=== PATIENT | male | born 1955 | race Caucasian/White ===

== ENCOUNTER → 2018-03-24 11:59 | Outpatient (CLI) | payer BC, SELFPAY ==
--- NOTE | 2018-03-24 12:06 | XR_ITS ---
XR chest 2V HISTORY: ITS.REASON: PROSTATE CA ORDERING PHYSICIAN: Carlton Gallo MD PATIENT AGE: 62 years COMPARISON: None FINDINGS: The cardiomediastinal silhouette and pulmonary vascularity are within normal limits. The lungs are clear without infiltrates, suspicious nodules, or pleural effusions. Small linear areas of increased density noted in the right upper lobe and lingula consistent with areas of fibrosis. No lobar consolidation or collapse. Degenerative changes thoracic spine with endplate osteophytes and ankylosis. No lytic or blastic change apparent. IMPRESSION: 1. No acute finding. 2. Fibrotic or atelectatic change right upper lobe and lingula.
== END ==
PROVIDERS: PCP Family Medicine; Visit Provider Urology
DX: C61 Malignant neoplasm of prostate (principal)
CPT/HCPCS: 71046

== ENCOUNTER → 2018-05-19 14:47 | Outpatient (CLI) | payer BC, SELFPAY ==
--- NOTE | 2018-05-19 14:48 | FL_ITS ---
FL voiding cystourethrogram CLINICAL INDICATION: Recent prostate surgery with Gooden catheter present. 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 Approximately 150 cc of Cystografin was instilled into the urinary bladder via the indwelling Gooden catheter. Contrast was noted to extravasate posterior to the base of the urinary bladder. On the lateral exam and it appears that the contrast was imaged from the prostatic urethra. Injection was then discontinued. The bladder was not completely filled. Small diverticula noted along the superior posterior aspect of the urinary bladder IMPRESSION: Extravasation of contrast from the prostatic urethra posteriorly Significant findings called to Dr. Gallo on 05/19/2018 3;15 PM.
== END ==
PROVIDERS: PCP Family Medicine; Visit Provider Urology
DX: C61 Malignant neoplasm of prostate (principal)
CPT/HCPCS: 74455; Q9966

== ENCOUNTER → 2018-05-26 12:41 | Outpatient (CLI) | payer BC, SELFPAY ==
--- NOTE | 2018-05-26 12:43 | FL_ITS ---
FL voiding cystourethrogram CLINICAL INDICATION: Prostate cancer, status post surgery, follow-up extravasation ITS.REASON: prostate cancer ORDERING PHYSICIAN: Carlton Gallo MD PATIENT AGE: 62 years Comparison: 05/19/2018 FINDINGS: Approximate 120 mL's of Isovue 200 was instilled in through the indwelling Gooden catheter. There is persistent extravasation of contrast along the posterior aspect of the prostatic urethra with collection of contrast posteriorly. This is similar when compared to the previous exam and occurred earlier during the exam than when compared to the previous study. Urinary bladder has a trabecular pattern as before. IMPRESSION: Persistent extravasation of contrast from the prostatic urethra posteriorly
== END ==
PROVIDERS: Family Provider Family Medicine; PCP Family Medicine; Visit Provider Urology
DX: C61 Malignant neoplasm of prostate (principal)
CPT/HCPCS: 74455

== ENCOUNTER → 2018-06-05 11:15 | Outpatient (CLI) | payer BC, SELFPAY ==
[2018-06-05 15:28] LABS: Prostate Specific Ag, Diagnost 0.01 ng/mL (0.0-4.0)
== END ==
PROVIDERS: Visit Provider Urology
DX: C61 Malignant neoplasm of prostate (principal)
CPT/HCPCS: 36415; 84153

== ENCOUNTER → 2018-08-11 13:12 | Outpatient (CLI) | payer BC, SELFPAY ==
[2018-08-11 15:32] LABS: Prostate Specific Ag, Diagnost < 0.05 ng/mL (0.0-4.0)
== END ==
PROVIDERS: Visit Provider Urology
DX: C61 Malignant neoplasm of prostate (principal)
CPT/HCPCS: 36415; 84153

== ENCOUNTER → 2018-11-09 15:28 | Outpatient (CLI) | payer BC, SELFPAY ==
[2018-11-11 14:27] LABS: PSA, Free <0.01 ng/mL; Prostate Specific Ag <0.1 ng/mL (0.0-4.0)
== END ==
PROVIDERS: Visit Provider Urology
DX: C61 Malignant neoplasm of prostate (principal)
CPT/HCPCS: 36415; 84153; 84154

== ENCOUNTER → 2019-03-30 13:59 | Outpatient (CLI) | payer BC, SELFPAY ==
[2019-03-30 15:57] LABS: Prostate Specific Ag, Diagnost < 0.05 ng/mL (0.0-4.0)
== END ==
PROVIDERS: Visit Provider Urology
DX: C61 Malignant neoplasm of prostate (principal)
CPT/HCPCS: 36415; 84153

== ENCOUNTER → 2019-06-29 13:27 | Outpatient (CLI) | payer BC, SELFPAY ==
--- NOTE | 2019-06-29 | CA_ITS ---
APPROVED REPORT EXAM: Comprehensive 2D, Doppler, and color-flow Echocardiogram Spray Drier Operator Helper: Liliana Arana CRT Ht: 5 ft 4 in Wt: 192lbs BSA: 1.92 BP: 106/65 mmHg Indications: murmur 2D Dimensions LVOT 1.73 cm (M/F) 1.5-2.5 M-Mode Dimensions RVDd 2.81 cm (0.9-2.6) LVDd 5.73 cm (3.5-5.7) LVDs 4.15 cm (3.5-5.7) IVSd 1.64 cm (0.6-1.1) PWd 0.40 cm (0.6-1.1) EF (Teich) 52.80% FS 27.60% EDV (Teich) 162.00 mL ESV (Teich) 76.40 mL LV Diastology E/A Ratio 0.96 Mitral Valve MV A Velocity 54.00 (40-130 cm/s) Left Ventricle Left atrium is mildly enlarged, left ventricle is normal size, there is mild qualitative concentric left ventricular hypertrophy, visually estimated ejection fraction 55% with no regional wall motion abnormality, grade 1 diastolic dysfunction seen without tissue Doppler evidence of raise left atrial pressure. Right Ventricle Right atrium and right ventricular normal size and contractility. Aortic Valve Aortic valve is thickened and calcified leaflet chordae display good mobility, there is no aortic stenosis, there is mild aortic insufficiency. Mitral Valve Mitral valve is grossly normal, there is mild mitral regurgitation. Tricuspid Valve Tricuspid valve is grossly normal, there is mild tricuspid regurgitation. Tricuspid regurgitation jet velocity is inadequate for calculation of the right ventricular systolic pressure. Pulmonic Valve Pulmonic valve is poorly visualized. Great Vessels Aortic root is normal size. Pericardium No significant pericardial effusion noted. Conclusion 1. Mildly enlarged left atrium, normal left ventricular size, mild concentric left ventricular hypertrophy, visually estimated ejection fraction 55% with no regional wall motion abnormality, grade 1 diastolic dysfunction seen without tissue Doppler evidence of raise left atrial pressure. 2. Mild aortic, mild mitral and tricuspid regurgitation. 3. No significant pericardial effusion noted. Electronically signed by : Vivek Castillo, 06/29/2019 22:10:53
--- NOTE | 2019-06-29 | CA_ITS ---
APPROVED REPORT Target Trimmer: CT Laterality: Bilateral Indications: bruit Risk Factors Hypertension: Hyperlipidemia Diabetes Doppler Spectral Velocity Analysis ECA (R) 94.70/94.70 cm/s ECA (L) 75.30/11.80 cm/s dICA (R) 67.70/28.10 cm/s dICA (L) 50.40/15.40 cm/s Kiersten (R) 71.30/31.80 cm/s Kiersten (L) 54.60/22.50 cm/s pICA (R) 40.60/16.10 cm/s pICA (L) 36.00/14.10 cm/s dCCA (R) 89.90/17.30 cm/s dCCA (L) 69.80/17.60 cm/s pCCA (R) 108.00/26.60 cm/s pCCA (L) 90.50/20.40 cm/s Vert (R) 37.70/15.10 cm/s Vert (L) 38.00/38.00 cm/s Findings Duplex evaluation demonstrates stenosis of the right proximal internal carotid artery <20% with PSV <140 cm/sec, EDV <100 cm/sec, and IC/CC Ratio <4.0. Duplex evaluation demonstrates stenosis of the left proximal internal carotid artery <20% with PSV <140 cm/sec, EDV <100 cm/sec, and IC/CC Ratio <4.0. Duplex evaluation demonstrates antegrade flow of the bilateral Vertebral Arteries. Conclusion No increased velocities to suggest hemodynamically significant stenosis in either internal carotid artery. Electronically signed by : Zachery Rodriguez MD 06/30/2019 14:42:46
[2019-06-29 15:52] LABS: Prostate Specific Ag, Diagnost 0 ng/mL (0.0-4.0)
== END ==
PROVIDERS: Urology; PCP Family Medicine; Visit Provider Family Medicine
DX: R33.9 Retention of urine, unspecified (principal); R01.1 Cardiac murmur, unspecified; R42 Dizziness and giddiness; E78.00 Pure hypercholesterolemia, unspecified; E11.9 Type 2 diabetes mellitus without complications
CPT/HCPCS: 36415; 84153; 93306; 93880

== ENCOUNTER 2019-09-22 14:00 | Outpatient (RCR) | payer BC, SELFPAY ==
--- NOTE | 2019-06-30 10:09 | HMH.PTOPEV ---
PT Outpatient Evaluation Rehab PT Outpatient Evaluation Start: 06/30/19 09:26 Freq: Status: Active Protocol: Document 06/30/19 09:26 RAMSES (Rec: 06/30/19 10:09 RAMSES [id number]) Electronically Signed By Jersey Watkins, PT 06/30/19 09:26 Outpatient Therapy Subjective History Subjective History Pt reports h/o chronic R SH pain, R sided neck/UT mm area pain for ~3 months. Pt reports pain radiates from UT into Sh blade and SH area on R, bin. w/repeatitive work activities. Pt reports previous R SH RTC injury ~9 yrs ago. Chief Complaint Pain,Stiff Symptom Type Ache,Dull Symptoms Relieved By Rest/Positioning,Heat Symptoms Aggravated By Physical Activity,Lifting Prior Functional Limitations Reaching,Lifting,Housework Current Functional Limitations Reaching,Lifting,Housework Symptom Description Constant but Variable Level of pain today (0-10) 3 Pain scale - at its best (0-10) 2 Pain scale - at its worst (0-10) 4 Shoulder/Elbow Eval Shoulder Objective Measurements Palpation Tenderness tenderness shoulder exam standard right Shoulder Palpation Findings Tenderness Shoulder Palpation Overall Comment 2-3/4 UT MM Posture Shoulder Posture Sitting Position (L) Rounded,(R) Rounded Shoulder Posture Standing Position (L) Rounded,(R) Rounded Scapula Posture Sitting Position (L) Protracted,(R) Protracted Scapular Posture Standing Position (L) Protracted,(R) Protracted Flexibilty Deficits Pectoralis Minor Muscle Length (R) Severe Tightness,(L) Severe Tightness Pectoralis Major Muscle Length (R) Severe Tightness,(L) Severe Tightness Upper Trapezius Muscle Length (R) Moderate Tightness,(L) Moderate Tightness Shoulder ROM Right Shoulder Abduction Active Range of 0-130 Motion (degrees) Shoulder Flexion Active Range of Motion 0-140 (degrees) Query Text: Shoulder MMT Lower Trapezius Strength Grade 3+ Fair+ Middle Trapezius Strength Grade 4- Good- Rhomboids Strength Grade 4- Good- Shoulder Abduction Strength Grade 4 Good Shoulder Flexion Strength Grade 4 Good Shoulder External Rotation Strength 4 Good Grade Shoulder Internal Rotation Strength 5 Normal Grade Supraspinatus Strength Grade 4- Good- Shoulder Special Tests Shoulder Drop Arm Test Negative Right Shoulder Cross-Over Impingement Test Positive Right Shoulder Empty Can (Supraspinatus) Test Positive Right Shoulder Pisano-Marshall Impingement Positive
--- NOTE | 2019-08-06 15:41 | HMH.RHREAS ---
Rehab Reassessment Rehab OP Re-assessment Start: 08/06/19 15:17 Freq: Status: Active Protocol: Document 08/06/19 15:17 RAMSES (Rec: 08/06/19 15:41 RAMSES [id number]) Electronically Signed By Jersey Watkins, PT 08/06/19 15:17 Rehab Re-assessment Subjective Subjective PT REPORTS 0-2/10 R SH PAIN W/ ACTIVITY, AND FEELS 50-60% BETTER OVERALL SINCE I EVAL Objective Objective Notes AROM: R SH FLX AND ABD 0-150 MMT: R SH FLX 4/5 W/PAIN, ABD 4+/5, IR 5/5, ER 5/5, R BICEP 5/5, 6 TRICEP 5/5, MT/RHOMBOID 4/5 TTP: R UT 1/4, R DELTOID 1/4 Assessment Progress Assessment Progressing as Expected Assessment Notes PT W/IMPROVED TTP, STRENGTH, AND ROM Patient goals met STG'S 02/07 LTG'S 11/08 Goals Not Met LTG'S 10/08 Plan Plan PT TO CONT. W/SKILLED P.T. TO MAKE FURTHER IMPROVEMENTS W/ AROM, STRENGTH, AND TTP TO ALLOW FOR OPTIMAL FUNCTION Frequency of Therapy 1-2X/WK Duration of therapy 3-4 WKS Time and Billing Re-Eval Time 15 Re-Eval Billing Units 1 PHYSICIAN CERTIFICATION: I certify the specified therapy services for Humberto Johnson are required, authorized, and reviewed every 30 days.
== END 2019-09-22 14:05 | disposition home or self-care (01) ==
LOC: PT 14:00
PROVIDERS: PCP Family Medicine; Visit Provider Family Medicine
DX: M75.101 Unspecified rotator cuff tear or rupture of right shoulder, not specified as traumatic (principal)
CPT/HCPCS: 97010; 97014; 97035; 97110; 97140; 97163; 97164; G0283

== ENCOUNTER → 2019-12-31 10:57 | Outpatient (CLI) | payer BC, SELFPAY ==
--- NOTE | 2019-12-31 11:05 | XR_ITS ---
PROCEDURE: XR KUB CLINICAL INDICATION: RT FLANK PAIN COMPARISON: No exams were available for comparison FINDINGS: There is a moderate amount stool in the upper ascending colon and hepatic flexure and proximal transverse colon somewhat obscuring the mid and lower pole right kidney. No obvious calculi are seen in the right kidney or along the course of the right ureter. Left renal shadows partially obscured by overlying stool and bowel gas in the distal transverse colon but again no obvious calculi are seen. There is no significant small bowel gas. There are no abnormal soft tissue shadows. There are mild degenerate changes thoracolumbar junction. IMPRESSION: Moderate stool right colon no definite renal or ureteral calculi identified though portions of both kidneys are obscured. Dictated by: Dr. Dwain Paula MD 12/31/2019 11:[address] Dwain Paula MD in [place] 12/31/2019 11:38
== END ==
PROVIDERS: PCP Family Medicine; Visit Provider Nurse Practitioner Family
DX: R10.9 Unspecified abdominal pain (principal)
CPT/HCPCS: 74018

== ENCOUNTER → 2020-12-06 07:48 | Outpatient (CLI) | payer BC, SELFPAY ==
--- NOTE | 2020-12-06 | CA_ITS ---
APPROVED REPORT EXAM: Comprehensive 2D, Doppler, and color-flow Echocardiogram Simonizer: Hilda Gerardo RT(R) Ht: 5 ft 4 in Wt: 200lbs BSA: 1.96 BP: 136/77 mmHg Indications: Murmur, DM, SOB, hyperlipidemia 2D Dimensions LVOT 2.09 cm (M/F) 1.5-2.5 LA Volume 46.60 mL LA Volume Index 23.89 mL/m2 (M/F) 16-34 M-Mode Dimensions RVDd 2.81 cm (0.9-2.6) LA Diam 4.85 cm (1.9-4.0) LVDd 4.45 cm (3.5-5.7) Ao Diam 2.64 cm (2.0-3.7) LVDs 3.56 cm (3.5-5.7) IVSd 1.36 cm (0.6-1.1) PWd 1.08 cm (0.6-1.1) EF (Teich) 41.20% FS 20.00% EDV (Teich) 90.10 mL ESV (Teich) 53.00 mL LV Diastology E Decel Time 223.00 (160-240 msec) E/A Ratio 0.9 MED E' 13.70 (< 7 cm/sec) E'/MED E' Ratio 5.45 (>14) LAT E' 11.00 (<10 cm/sec) E/LAT E' Ratio 6.79 (>14) Aortic Valve LVOT Max 124.00 (70-110 cm/s) LVOT VTI 26.15 cm AoV Peak Heriberto. 315.00 (50-130 cm/s) AO Peak GR. 39.80 mmHg AO Mean GR. 19.50 (<5 mmHg) AO VTI 59.20 (18-25 cm) NILE (VTI) 1.52 (2.5-4.5 cm2) Mitral Valve MV E Max Heriberto. 75.00 (40-130 cm/s) MV A Velocity 83.00 (40-130 cm/s) E/A Ratio 0.90 MV Decel. Time 223.00 (160-240 ms) MV PHT 65.00 ms Left Ventricle Left atrium is mildly enlarged, left ventricle is normal size, left ventricle wall thickness is upper limit of the normal, there is preserved left ventricular systolic function, visually estimated ejection fraction 55% with no regional wall motion abnormality, diastolic parameters are within normal range. Right Ventricle Right atrium and right ventricle are normal size and contractility. Aortic Valve Aortic valve is thickened and calcified, mean gradient across valve is 42 mmHg valve area 1.5 cm, represents mild aortic stenosis, there is no significant aortic insufficiency. Mitral Valve Mitral valve is grossly normal, there is trace mitral regurgitation. Tricuspid Valve Tricuspid grossly normal, there is trace tricuspid regurgitation, tricuspid regurgitation jet velocity is inadequate for calculation of the right ventricular systolic pressure. Pulmonic Valve Pulmonic valve is poorly visualized. Great Vessels Aortic root is normal size. Pericardium No significant pericardial effusion noted. Conclusion 1. Mildly low left atrium, normal left ventricular size, visually estimated ejection fraction 55% with no regional wall motion abnormality, diastolic parameters are within normal range 2. Thickened and calcified aortic valve with mild aortic stenosis, the valve area is 1.5 cm???, there is no aortic insufficiency. 3. Trace mitral and tricuspid regurgitation. 4. No significant pericardial effusion noted. Electronically signed by : Vivek Castillo, 12/07/2020 15:53:25
== END ==
PROVIDERS: PCP Family Medicine; Visit Provider Family Medicine
DX: R06.02 Shortness of breath (principal); I34.0 Nonrheumatic mitral (valve) insufficiency; I35.1 Nonrheumatic aortic (valve) insufficiency; I36.1 Nonrheumatic tricuspid (valve) insufficiency; E66.9 Obesity, unspecified; Z68.30 Body mass index [BMI] 30.0-30.9, adult
CPT/HCPCS: 93306

== ENCOUNTER → 2021-07-17 13:23 | Outpatient (CLI) | payer BC, SELFPAY ==
--- NOTE | 2021-07-17 13:28 | XR_ITS ---
PROCEDURE: XR WRIST RT MIN 3V CLINICAL INDICATION: right wrist pain COMPARISON: No exams were available for comparison FINDINGS: No fracture or dislocation. No lytic or blastic change. There is normal mineralization. There are mild osteoarthritic changes at the scapho trapezium joint and 1st carpal metacarpal junction Other findings:None. IMPRESSION: Mild osteoarthritis Dictated by: Zachery Rodriguez MD 07/17/2021 15:46 Zachery Rodriguez MD in [place] 07/17/2021 15:46
== END ==
PROVIDERS: PCP Family Medicine; Visit Provider Orthopaedic Surgery
DX: M25.531 Pain in right wrist (principal)
CPT/HCPCS: 73110

== ENCOUNTER 2021-08-10 11:43 | Inpatient (IN) | payer BC, SELFPAY ==
[2021-08-10] VITALS (17 sets, daily range): BP systolic 130–175; BP diastolic 69–103; PULSE 89–105; RESP 20–22; TEMP 36.6–36.7; O2SAT 68–98; BMI 34.4; BMI 32.9
--- NOTE | 2021-08-10 11:52 | HMH.EDGENADL ---
ED Disposition Clinical Impression: Pulmonary emboli Qualifiers: Pulmonary embolism type: unspecified Chronicity: acute Acute cor pulmonale presence: with acute cor pulmonale Qualified Code(s): I26.09 - Other pulmonary embolism with acute cor pulmonale Respiratory failure with hypoxia Qualifiers: Chronicity: acute Qualified Code(s): J96.01 - Acute respiratory failure with hypoxia Disposition: Admitted As Inpatient Condition on Discharge: Serious Referrals: Yefri Bennett MD [Primary Care Provider] - - Critical Care Critical Care Time: Yes Attestation: On 08/10/21, the high probability of a clinically significant, sudden or life threatening deterioration of the following system(s) required my full and direct attention, intervention and personal management. The time I documented below is in addition to time spent performing reported procedures but includes the following listed in this critical care notation. Total Critical Care Time: 30 Vital system(s) involved:: Respiratory Failure My critical care processes included: Assessment & monitoring of V/S, Initial and Re-exams, Data Review/Interpretation, Coordinating Care, Medication Orders and management, Documentation Medical Decision Making - Hernandez Inquiry Pt receiving controlled substance: No Vital Signs: 08/10/21 11:44 08/10/21 12:00 08/10/21 12:03 Temperature 98.0 F Temperature Source Oral Pulse Rate 105 H Pulse Rate [Right Radial] 105 H Respiratory Rate 22 Blood Pressure 159/86 H Blood Pressure [Right Arm] 149/87 H Blood Pressure Mean [Right Arm] 107 Blood Pressure Source [Right Arm] Automatic Cuff Blood Pressure Position [Right Arm] Sitting 02 Sat by Pulse Oximetry 68 L 95 93 L Oxygen Delivery Method Room Air Non-Rebreather Non-Rebreather Oxygen Flow Rate (LPM) 15 15 08/10/21 12:30 08/10/21 13:01 08/10/21 13:15 Temperature Temperature Source Pulse Rate 98 H 99 H 98 H Pulse Rate [Right Radial] Respiratory Rate Blood Pressure 175/103 H 150/85 H 135/69 Blood Pressure [Right Arm] Blood Pressure Mean [Right Arm] Blood Pressure Source [Right Arm] Blood Pressure Position [Right Arm] 02 Sat by Pulse Oximetry 96 95 98 Oxygen Delivery Method Non-Rebreather Non-Rebreather Oxygen Flow Rate (LPM) 08/10/21 14:00 Temperature Temperature Source Pulse Rate 98 H Pulse Rate [Right Radial] Respiratory Rate Blood Pressure 130/74 Blood Pressure [Right Arm] Blood Pressure Mean [Right Arm] Blood Pressure Source [Right Arm] Blood Pressure Position [Right Arm] 02 Sat by Pulse Oximetry 94 L Oxygen Delivery Method Non-Rebreather Oxygen Flow Rate (LPM) - Lab Data Lab Results 08/10/21 11:55: WBC 13.3 H, RBC 4.33 L, Hgb 14.0 L, Hct 43.5, MCV 100.4 H, MCH 32.4 H, MCHC 32.2, RDW 13.3, Plt Count 321, MPV 8.6, Neut % (Auto) 78.9, Lymph % (Auto) 11.6, [place] % (Auto) 7.5, Eos % (Auto) 0.2, Baso % (Auto) 1.8, Neut # (Auto) 10.4 H, Lymph # (Auto) 1.5, [place] # (Auto) 1.0, Eos # (Auto) 0.0, Baso # (Auto) 0.2 08/10/21 11:55: Sodium 132 L, Potassium 4.0, Chloride 96 L, Carbon Dioxide 23, Anion Gap 17.0 H, BUN 22 H, Creatinine 1.00, Estimated Creat Clear 95, Estimated GFR 75, Est GFR ( Amer) 91, Glucose 381 H, Calcium 9.7, Total Bilirubin 0.7, AST 31, ALT 27, Alkaline Phosphatase 85, Troponin I 0.28 H, Total Protein 7.7, Albumin 4.3, Globulin 3.4 H, Albumin/Globulin Ratio 1.3 08/10/21 11:55: SARS-CoV-2 (PCR) Not detected, Influenza A Untype (PCR) Not detected, Influenza Type B (PCR) Not detected Result diagrams: 08/10/21 11:55 08/10/21 11:55 Orders (Tests/Meds): ED MEDICATIONS Generic Name Dose Route Start Last Admin Trade Name Freq PRN Reason Stop Dose Admin Heparin Sodium/Dextrose 500 mls @ 24 mls/hr 08/10/21 15:15 08/10/21 15:13 Heparin 25,000 Units In D5w 500ml Premix IV 09/09/21 15:14 24 mls/hr .[id number] HAMLET Administration 1,200 UNITS/HR Discontinued Medications Generic Name Dose
--- NOTE | 2021-08-10 12:00 | XR_ITS ---
FINAL REPORT CLINICAL HISTORY: low SaO2, STRONG FINDINGS: A portable view of the chest was obtained. The heart is mildly enlarged. The mediastinum is within normal limits. There is linear opacity in right upper lobe favoring atelectasis. The lungs are otherwise clear. There is no pleural effusion or pneumothorax. IMPRESSION: Linear opacity in right upper lobe favoring atelectasis. Reviewed, Interpreted and Dictated by Polina Lilly MD Transcribed by Erika David Authenticated by Polina Lilly MD on 08/10/2021 01:40:55 PM [facility]
--- NOTE | 2021-08-10 12:00 | CT_ITS ---
FINAL REPORT TECHNIQUE: Axial imaging of the chest is obtained after the administration of contrast. 3-D MIP reformatted images were also obtained and reviewed per PE protocol. CLINICAL HISTORY: r/o PE, low SaO2 FINDINGS: There are multiple bilateral pulmonary emboli. There is embolus in the right main pulmonary artery. There is no saddle embolus. There is no aortic dissection. The right ventricle to left ventricle ratio is slightly greater than 1 suggesting right heart strain. There is no mediastinal, hilar, or axillary lymphadenopathy. Linear opacities in the right upper lobe favor atelectasis. The lungs are otherwise clear. There is no pleural or pericardial effusion. Soft tissues are within normal limits. Limited evaluation of the upper abdomen is without acute abnormality. There is no acute osseous abnormality. IMPRESSION: Extensive bilateral pulmonary emboli with right heart strain. Reviewed, Interpreted and Dictated by Polina Lilly MD Transcribed by Handy Silva Authenticated by Polina Lilly MD on 08/10/2021 01:41:10 PM [facility]
--- NOTE | 2021-08-10 12:02 | PC.NURSE ---
notified rad of orders on pt
--- NOTE | 2021-08-10 12:03 | PC.NURSE ---
initial room air SaO2 upon pt arrival was 68%, pt placed pt on 100% NRB, pt steadily improved pt is now 93% on NRB ER MD is aware will continue to monitor
[2021-08-10 12:13] LABS: Basophils # 0.2 K/mm3 (0-0.2); Basophils % 1.8 % (0.1-2.0); Eosinophils % 0.2 % (0.1-12.0); Hematocrit 43.5 % (42.0-52.0); Lymphocytes # 1.5 K/mm3 (0.7-4.5); Lymphocytes % 11.6 % (10-50); Mean Corpuscular HGB Conc 32.2 g/dL (31.8-35.4); Mean Corpuscular Hemoglobin 32.4 pg (27.0-31.2); Mean Corpuscular Volume 100.4 fl (80-94); Mean Platelet Volume 8.6 fl (7.4-10.4); Monocytes % 7.5 % (1.7-9.3); Neutrophils # 10.4 K/mm3 (1.8-7.8); Neutrophils % 78.9 % (37.0-80.0); Platelet Count 321 K/mm3 (142-424); Red Blood Count 4.33 M/mm3 (4.60-6.20); Red Cell Distribution Width 13.3 % (11.5-17.5); White Blood Count 13.3 K/mm3 (4.8-10.8)
[2021-08-10 12:18] LABS: Chloride 96 mmol/L (98-107); Sodium 132 mmol/L (136-145)
[2021-08-10 12:21] LABS: Alanine Aminotransferase 27 U/L (12-78); Albumin Level 4.3 g/dl (3.5-5.0); Albumin/Globulin Ratio 1.3 (1.1-1.8); Alkaline Phosphatase 85 U/L (38-126); Aspartate Amino Transferase 31 U/L (17-59); Bilirubin,Total 0.7 mg/dl (0.2-1.3); Blood Urea Nitrogen 22 mg/dl (9-20); Carbon Dioxide 23 mmol/L (22.0-30.0); Creatinine Clearance Estimated 95 mL/min (50-200); Estimated Glomerular Filt Rate 75 ml/min (>60); GFR (African American) 91 ML/MIN (>60); Globulin 3.4 g/dL (1.3-3.2); Total Protein,Serum 7.7 g/dl (6.3-8.2)
[2021-08-10 12:22] LABS: Calcium 9.7 mg/dl (8.4-10.2); Glucose 381 mg/dl (74-100)
--- NOTE | 2021-08-10 12:24 | ECG_ITS ---
APPROVED REPORT Exam: Resting ECG HR:100 bpm ECG Measurements Heart Rate 100 AXES [place] 190 P 40 QRSd 94 QRS 41 QT 402 T 7 QTc 518 Conclusion Normal sinus rhythm Nonspecific ST abnormality Prolonged QT Abnormal ECG Electronically signed by : Yefir Mchugh MD 08/11/2021 09:25:08
[2021-08-10 12:45] LABS: Coronavirus 19, PCR Not Detected (NotDetected); Influenza A, PCR Not Detected (NotDetected); Influenza B, PCR Not Detected (NotDetected); Troponin I 0.28 ng/ml (0.00-0.034)
--- NOTE | 2021-08-10 13:52 | PC.NURSE ---
NICK RAINEY speaking Dr. Velasquez.
--- NOTE | 2021-08-10 14:05 | PC.NURSE ---
calling dr gordillo per dr mills request.
--- NOTE | 2021-08-10 14:12 | PC.NURSE ---
Dr Grady speaking with Dr Bennett
--- NOTE | 2021-08-10 14:50 | PC.NURSE ---
cardiology at bedside
--- NOTE | 2021-08-10 14:57 | HMH.CNCARD ---
History of Present Illness Consult date: 08/10/21 Requesting physician: Brandon Grady Consult reason: shortness of breath Chief complaint: PE History of present illness: 66-year-old male presented to the emergency room with worsening shortness of breath. Patient states on 07/24/2027 he did undergo urology surgery in which he had prostatectomy performed. Patient does have a Gooden catheter intact. Draining clear yellow urine. Patient states for the past few days his shortness of breath has become worse to where he is unable to do his daily activities. Complains of increased fatigued and generalized weakness. States he did have an episode of midsternal chest pain that accompanied with the shortness of breath. Patient denies chest pain at this time. Patient states fevers for the past 2 to 3 days. Patient denies any history of cardiac disease. Patient does have a aortic murmur noted. Patient did have an echo in December 2020 which revealed mild aortic stenosis and trace of MR and TR noted. EF was within normal. Patient is on a nonrebreather at this time. Pulse ox is 93 to 94%. Blood pressure is stable. Denies dizziness or palpitations. Chest CTA was performed which revealed pulmonary embolus with right heart strain. WBCs are noted as elevated. Patient does have history of diabetes. Patient does have history of HIV and is currently on medications. History of hypertension and hyperlipidemia. Patient is a non-smoker. Patient has no history of COPD. EKG reveals sinus rhythm with nonspecific or evidence of acute ischemic injury. Troponin x1 is noted as elevated at 0.28. Patient is currently on a heparin drip. Patient will need to remain on a heparin drip as per pharmacy protocol. Pharmacy will manage heparin. Chest CTA:FINDINGS: There are multiple bilateral pulmonary emboli. There is embolus in the right main pulmonary artery. There is no saddle embolus. There is no aortic dissection. The right ventricle to left ventricle ratio is slightly greater than 1 suggesting right heart strain. There is no mediastinal, hilar, or axillary lymphadenopathy. Linear opacities in the right upper lobe favor atelectasis. The lungs are otherwise clear. There is no pleural or pericardial effusion. Soft tissues are within normal limits. Limited evaluation of the upper abdomen is without acute abnormality. There is no acute osseous abnormality. IMPRESSION: Extensive bilateral pulmonary emboli with right heart strain. [facility] History I have reviewed the patient's past medical history: Yes Medical History: Reports:: Diabetes Mellitus Type 2, Hyperlipidemia Denies:: Diabetes Mellitus Type 1, Internal Pacemaker, Lung Disease, Seizures *Have you ever received a pneumonia vaccine?: No *Have you received a flu vaccine this season?: Yes Other Medical History: Denies: Blood Transfusion Reaction Other Surgeries: Yes: Colonoscopy, Hernia Repair, Other. No: Pacemaker Amputation: No Fractures: No - *Social History Smoking Status: Former smoker Tobacco Type: cigarettes Alcohol Intake: current Alcohol Intake Frequency:: holidays/special occasions only Substance Use Type: denies use *Occupational Status:: employed *Travel in the last 8 weeks: Inside the [facility] Family Hx:: Unable to obtain Meds Home Medications Medication Instructions Recorded Confirmed Type Atorvastatin Calcium [Atorvastatin 10 mg PO DAILY 01/27/18 07/17/21 History 10mg Tab] Calcium Carbonate [Calcium] 1,200 mg PO DAILY 01/27/18 07/17/21 History Elviteg/Flora/Emtric/Tenofo Ala 1 each PO DAILY 01/27/18 07/17/21 History [Genvoya Tablet] Fenofibrate [Fenoglide] 145 mg PO DAILY 01/27/18 07/17/21 History [place]-3 Fatty Acids [Fish Oil] 300 mg PO DAILY 01/27/18 07/17/21 History Sitagliptin Phosphate [Januvia 50 mg PO DAILY 01/27/18 07/17/21 History 50mg Tablet] Allergies Allergy/AdvReac Type Severity Reaction Status Date / Time No Known Allergie
--- NOTE | 2021-08-10 14:58 | CA_ITS ---
APPROVED REPORT EXAM: Comprehensive 2D, Doppler, and color-flow Echocardiogram Negative Turner Apprentice: Pinky Finn RVT Ht: 5 ft 4 in Wt: 201lbs BSA: 1.96 BP: 175/103 mmHg Indications: PE,MILD ,SOA,SMOKER,HIV TDS-PT UPRIGHT ON BACK ON NON-REBREATHER 2D Dimensions LVOT 2.58 cm (M/F) 1.5-2.5 LA Volume 37.50 mL LA Volume Index 19.13 mL/m2 (M/F) 16-34 M-Mode Dimensions RVDd 3.26 cm (0.9-2.6) LA Diam 4.23 cm (1.9-4.0) LVDd 5.32 cm (3.5-5.7) Ao Diam 3.21 cm (2.0-3.7) LVDs 3.62 cm (3.5-5.7) IVSd 1.21 cm (0.6-1.1) PWd 1.07 cm (0.6-1.1) EF (Teich) 59.60% FS 32.00% EDV (Teich) 136.50 mL TAPSE 2.22 (<1.7) ESV (Teich) 55.20 mL LV Diastology E Decel Time 160.00 (160-240 msec) E/A Ratio 0.8 MED E' 6.20 (< 7 cm/sec) E'/MED E' Ratio 8.00 (>14) LAT E' 5.70 (<10 cm/sec) E/LAT E' Ratio 8.70 (>14) Aortic Valve LVOT Max 63.00 (70-110 cm/s) LVOT VTI 11.14 cm AoV Peak Heriberto. 216.00 (50-130 cm/s) AO Peak GR. 18.70 mmHg AO Mean GR. 10.10 (<5 mmHg) AO VTI 39.54 (18-25 cm) NILE (VTI) 1.47 (2.5-4.5 cm2) Mitral Valve MV E Max Heriberto. 50.00 (40-130 cm/s) MV A Velocity 66.00 (40-130 cm/s) E/A Ratio 0.75 MV Decel. Time 160.00 (160-240 ms) MV PHT 47.00 ms Pulmonary Valve PV Peak Velocity 71.00 (50-150 cm/s) Tricuspid Valve TR P. Velocity 303.00 cm/s RAP Estimate 10.00 mmHg RVSP 46.70 mmHg Left Ventricle Left atrium is mildly enlarged, the ventricle is normal size, mild concentric left ventricular hypertrophy, visually estimated ejection fraction 50% with no obvious regional wall motion abnormality, there is abnormal septal motion. Grade 1 diastolic dysfunction seen without tissue Doppler evidence of rate left atrial pressure. Right Ventricle Right atrium and right ventricle moderately enlarged, contractility of the right ventricle is moderately reduced. Aortic Valve Aortic valve is thickened and calcified, mean gradient across valve is 10 mmHg, valve area is 1.5 cm??? represents mild aortic stenosis, there is no significant aortic insufficiency. Mitral Valve Otherwise grossly normal, there is mild mitral regurgitation. Tricuspid Valve Tricuspid valve grossly normal, there is mild tricuspid regurgitation, tricuspid rotation jet versus inadequate for calculation of the right ventricular systolic pressure. Pulmonic Valve Pulmonic valve is poorly visualized. Great Vessels Aortic root is normal size. Inferior vena cava is mildly dilated without significant inspiratory collapse. Pericardium No significant pericardial effusion noted. Conclusion 1. Biatrial enlargement, normal left ventricular size, mild concentric left ventricular hypertrophy, visually estimated ejection fraction 50%, there is abnormal septal motion, grade 1 diastolic dysfunction seen without tissue Doppler evidence of raised left atrial pressure. 2. Moderately enlarged right ventricle with moderate reduction in left ventricular contractility. 3. Mild mitral and tricuspid regurgitation, tricuspid regurgitation jet versus inadequate for calculation of the right ventricular systolic pressure. 4. Thickened and calcified aortic valve with mild aortic stenosis, there is no significant aortic insufficiency. 5. No significant pericardial effusion noted. 6. Inferior vena cava is mildly dilated without significant inspiratory collapse. Electronically signed by : Vivek Castillo MD 08/13/2021 13:00:16
--- NOTE | 2021-08-10 15:05 | PC.NURSE ---
Dr Velasquez is in dept.
--- NOTE | 2021-08-10 15:07 | PC.NURSE ---
DR. Velasquez at
--- NOTE | 2021-08-10 15:09 | PC.NURSE ---
notified pharmacy that Dr Velasquez had given verbal order for Heparin drip at 1200 units per house repeated verbal order back to Dr. Velasquez at time of receiving it.
--- NOTE | 2021-08-10 15:12 | PC.NURSE ---
Dr Velasquez speaking with Dr. Bennett on the phone at this time
--- NOTE | 2021-08-10 15:16 | PC.NURSE ---
CV lab staff at
--- NOTE | 2021-08-10 15:24 | PC.NURSE ---
notified lab of add on PTT
[2021-08-10 15:37] LABS: PTT Heparin (inpatient only) 22.1 Seconds (23.6-34.0)
[2021-08-10 15:39] LABS: POC Glucose,Bedside 207 (70-110)
--- NOTE | 2021-08-10 15:58 | HMH.PHAHEP ---
[facility] Pharmacy Heparin Dosing - Demographic Data Admission date:: 08/10/21 Date: 08/10/21 Time: 15:59 Allergies/Adverse Reactions: Allergies Allergy/AdvReac Type Severity Reaction Status Date / Time No Known Allergies Allergy Verified 07/17/21 14:34 Height: 1.62 m Weight: 91 kg - Indication Medication therapy:: Heparin Patient Problems: Current Active Problems S/P prostatectomy (Acute) Pulmonary emboli (Acute) Respiratory failure with hypoxia (Acute) HTN (hypertension) (Acute) HLD (hyperlipidemia) (Acute) HIV (human immunodeficiency virus infection) (Acute) Diabetes (Acute) Esophagitis (Acute) CVA?: No Bleeding problem?: No Kidney disease?: No ND?: No Desired PTT range:: Other Comments:: 50-75 - Labs Anticoagulation Lab Results:: 08/10/21 11:55 Hgb 14.0 L Hct 43.5 Plt Count 321 - Monitoring Dose Monitor 1 Date: 08/10/21 Time: 15:59 PTT Result:: 22.1 Infusion Rate:: DR. HAMMER STARTING HEPARIN AT 1200 UNITS/HR AND 9100 UNIT BOLUS IN ER. Dose Monitor 2 Date: 08/10/21 Time: 19:00 PTT Result:: 36.3 Infusion Rate:: HEPARIN DRIP AT 1550 UNITS/HR (31 ML/HR) AND REBOLUS AT HEPARIN 4000 UNITS SQ. Dose Monitor 3 Date: 08/10/21 Time: 23:30 PTT Result:: 48.0 Infusion Rate:: INCREASE RATE TO HEPARIN 1750 UNITS/HR (35 ML/HR) Dose Monitor 4 Date: 08/11/21 Time: 07:40 PTT Result:: 29.6 Infusion Rate:: INCREASED RATE TO 2100 UNITS/HR (42 ML/HR) AND MD STARTED XARELTO 15 MG BID. Dose Monitor 5 Date: 08/11/21 Time: 12:30 PTT Result:: 72.0 Infusion Rate:: CONTINUE WITH HEPARIN 2100 UNITS/HR (42 ML/HR) Dose Monitor 6 Date: 08/11/21 Time: 16:30 Infusion Rate:: MD STOPPING HEPARIN DRIP 30 MIN AFTER PM DOSE OF XARELTO PER DR. HAMMER. - Core Measures Is INR > or = 2 at discharge?: No Most Recent Labs:: Laboratory Results - last 24 hr 08/10/21 11:55: WBC 13.3 H, RBC 4.33 L, Hgb 14.0 L, Hct 43.5, MCV 100.4 H, MCH 32.4 H, MCHC 32.2, RDW 13.3, Plt Count 321, MPV 8.6, Neut % (Auto) 78.9, Lymph % (Auto) 11.6, [place] % (Auto) 7.5, Eos % (Auto) 0.2, Baso % (Auto) 1.8, Neut # (Auto) 10.4 H, Lymph # (Auto) 1.5, [place] # (Auto) 1.0, Eos # (Auto) 0.0, Baso # (Auto) 0.2 08/10/21 11:55: Sodium 132 L, Potassium 4.0, Chloride 96 L, Carbon Dioxide 23, Anion Gap 17.0 H, BUN 22 H, Creatinine 1.00, Estimated Creat Clear 95, Estimated GFR 75, Est GFR ( Amer) 91, Glucose 381 H, Calcium 9.7, Total Bilirubin 0.7, AST 31, ALT 27, Alkaline Phosphatase 85, Troponin I 0.28 H, Total Protein 7.7, Albumin 4.3, Globulin 3.4 H, Albumin/Globulin Ratio 1.3 08/10/21 11:55: SARS-CoV-2 (PCR) Not detected, Influenza A Untype (PCR) Not detected, Influenza Type B (PCR) Not detected 08/10/21 11:55: APTT 22.1 L 08/10/21 15:31: POC Glucose 207 H If INR was < than 2.0 why was therapy stopped?: XARELTO STARTED Were Heparin and Warfarin started on the same day?: No If not, why?: XARELTO STARTED
--- NOTE | 2021-08-10 16:00 | PC.NURSE ---
confirmed with Dr Dennis baugh to be admitted to med-surg floor on telemetry
--- NOTE | 2021-08-10 16:03 | PC.NURSE ---
warehouse team leader notified of admission
--- NOTE | 2021-08-10 16:35 | PC.NURSE ---
Pt is vomiting at this time.
--- NOTE | 2021-08-10 16:38 | HMH.HP ---
*Admission Date: 08/10/21 *Chief complaint: shortness of breath *History of present illness: 66 year old male with recent surgery for artificial urinary sphincter implantation on 07/30/21 presnted to the office with complaint of cough, chest congestion, and shortness of breath for 3 days. Cough was minimally productive. Dyspnea had worsened each day and had associated chest tightness. Patient denied hemoptysis, radiation of chest tightness. Patient claimed fever to 101 at home. IN office patient was in respiratory distress with sats of 80% and tachycardia. Covid test was negative. Due to his respiratory distress patient was sent to ER for emergent workup due to concern of PE vs. [place]. In ER patient found to have multiple PEs and evidence of right heart strain. Hypoxia and tachycardia correted with nonrebreather. Cardiology was consulted and recommended Heparin Drip. [facility] History I have reviewed the patient's past medical history: Yes Medical History: Reports:: Cancer (prostate), Diabetes Mellitus Type 2, Hyperlipidemia Denies:: Diabetes Mellitus Type 1, Internal Pacemaker, Lung Disease, Seizures *Have you ever received a pneumonia vaccine?: No *Have you received a flu vaccine this season?: Yes Other Medical History: Reports: HIV. Denies: Blood Transfusion Reaction Other Surgeries: Yes: Colonoscopy, Hernia Repair, Other (Prostatectomy). No: Pacemaker Amputation: No Fractures: No - *Social History Last grade of school completed: High school graduate Smoking Status: Former smoker Tobacco Type: cigarettes Alcohol Intake: current Alcohol Intake Frequency:: holidays/special occasions only Substance Use Type: denies use *Occupational Status:: employed *Travel in the last 8 weeks: Inside the [facility] Family Hx:: Unable to obtain, Non-contributory Review of Systems - Review of Systems Review of systems:: pertinent systems reviewed and negative unless documented below - *Neurologic Reports weakness Meds Home Medications Medication Instructions Recorded Confirmed Type Atorvastatin Calcium [Atorvastatin 10 mg PO DAILY 01/27/18 08/10/21 History 10mg Tab] Elviteg/Flora/Emtric/Tenofo Ala 1 each PO DAILY 01/27/18 08/10/21 History [Genvoya Tablet] Fenofibrate [Fenoglide] 145 mg PO DAILY 01/27/18 08/10/21 History Sitagliptin Phosphate [Januvia 50 mg PO DAILY 01/27/18 07/17/21 History 50mg Tablet] Liraglutide [Victoza 3-Rogelio] 1.2 mg SQ DAILY 08/10/21 08/10/21 History cefUROXime axetiL [Ceftin 500mg 500 mg PO BID 08/10/21 08/10/21 History Tab (GEQ)] glipiZIDE [Glipizide] 10 mg PO DAILY 08/10/21 08/10/21 History Allergies Allergy/AdvReac Type Severity Reaction Status Date / Time No Known Allergies Allergy Verified 07/17/21 14:34 Exam Vital signs and Labs for Last 24 Hours: Temp Pulse Resp BP Pulse Ox 98.0 F 94 H 22 147/85 H 95 08/10/21 11:44 08/10/21 15:45 08/10/21 11:44 08/10/21 15:45 08/10/21 15:45 Laboratory Results - last 24 hr 08/10/21 11:55: WBC 13.3 H, RBC 4.33 L, Hgb 14.0 L, Hct 43.5, MCV 100.4 H, MCH 32.4 H, MCHC 32.2, RDW 13.3, Plt Count 321, MPV 8.6, Neut % (Auto) 78.9, Lymph % (Auto) 11.6, [place] % (Auto) 7.5, Eos % (Auto) 0.2, Baso % (Auto) 1.8, Neut # (Auto) 10.4 H, Lymph # (Auto) 1.5, [place] # (Auto) 1.0, Eos # (Auto) 0.0, Baso # (Auto) 0.2 08/10/21 11:55: Sodium 132 L, Potassium 4.0, Chloride 96 L, Carbon Dioxide 23, Anion Gap 17.0 H, BUN 22 H, Creatinine 1.00, Estimated Creat Clear 95, Estimated GFR 75, Est GFR ( Amer) 91, Glucose 381 H, Calcium 9.7, Total Bilirubin 0.7, AST 31, ALT 27, Alkaline Phosphatase 85, Troponin I 0.28 H, Total Protein 7.7, Albumin 4.3, Globulin 3.4 H, Albumin/Globulin Ratio 1.3 08/10/21 11:55: SARS-CoV-2 (PCR) Not detected, Influenza A Untype (PCR) Not detected, Influenza Type B (PCR) Not detected 08/10/21 11:55: APTT 22.1 L 08/10/21 15:31: POC Glucose 207 H I & O for Last 24 hours: Intake & Output 08/08/21 08/09/21 08/10/21 08/11/21 11:59 11:
--- NOTE | 2021-08-10 16:57 | PC.NURSE ---
report called to isaura lemus on second floor at this time
--- NOTE | 2021-08-10 16:57 | PC.NURSE ---
pt on 8L NC at this time while trying to eat a crackers and peanut butter, pt requested a snack, ER okayed pt eating. pt on continuous monitoring while eating
--- NOTE | 2021-08-10 17:08 | PC.NURSE ---
placed pt back on 100% NRB at this time, pt ate a few crackers, tolerated well.
--- NOTE | 2021-08-10 17:33 | PC.NURSE ---
Pt arrived to the floor at this time
[2021-08-10 20:30] LABS: PTT Heparin (inpatient only) 36.3 Seconds (23.6-34.0)
[2021-08-10 20:40] LABS: POC Glucose,Bedside 185 (70-110)
--- NOTE | 2021-08-10 20:53 | PC.NURSE ---
[facility] contacted with PTT results, said to increase 1550 units/hr, and 4000 unit bolus, pharmacy will schedule next PTT
[2021-08-11] VITALS: BP 160/78; PULSE 78; PULSE 95; RESP 20; TEMP 37.3; O2SAT 95
--- NOTE | 2021-08-11 01:26 | PC.NURSE ---
[facility] pharmacy contacted at this time with PTT result, gave order to increase to 1750 units/hr
[2021-08-11 04:00] VITALS: BP 149/86; PULSE 94; RESP 18; TEMP 37; O2SAT 96
--- NOTE | 2021-08-11 04:12 | PC.NURSE ---
at beginning of shift, pt complaining of heartburn and nausea, PRN medication given with no improvement in symptoms, pony trimmer notified and order for promethazine received and carried out with relief in symptoms, has rested well the rest of shift, urine draining to bag at bedside, orangish in color, 500 mL out so far this shift, nonrebreather remains in place with O2 sats 95-97%, no complaints of SOA this shift or pain
[2021-08-11 05:05] VITALS: BMI 32.2
[2021-08-11 06:14] LABS: POC Glucose,Bedside 210 (70-110)
[2021-08-11 08:00] VITALS: BP 133/75; PULSE 82; PULSE 87; RESP 20; TEMP 36.3; O2SAT 89; O2SAT 99
--- NOTE | 2021-08-11 08:05 | HMH.ACPN2 ---
Internal Medicine - PN: Subj *Date: 08/11/21 *Time: 08:05 Interval history: Patient has been stable overnight. He denies chest pain and reports feeling better. Oxygen saturations have been in the mid to high 90s. Pulse rate has remained in the 90s. Exam Vital signs and Labs for Last 24 Hours: Temp Pulse Resp BP Pulse Ox 98.6 F 94 H 18 149/86 H 96 08/11/21 04:00 08/11/21 04:00 08/11/21 04:00 08/11/21 04:00 08/11/21 04:00 Laboratory Results - last 24 hr 08/10/21 11:55: WBC 13.3 H, RBC 4.33 L, Hgb 14.0 L, Hct 43.5, MCV 100.4 H, MCH 32.4 H, MCHC 32.2, RDW 13.3, Plt Count 321, MPV 8.6, Neut % (Auto) 78.9, Lymph % (Auto) 11.6, [place] % (Auto) 7.5, Eos % (Auto) 0.2, Baso % (Auto) 1.8, Neut # (Auto) 10.4 H, Lymph # (Auto) 1.5, [place] # (Auto) 1.0, Eos # (Auto) 0.0, Baso # (Auto) 0.2 08/10/21 11:55: Sodium 132 L, Potassium 4.0, Chloride 96 L, Carbon Dioxide 23, Anion Gap 17.0 H, BUN 22 H, Creatinine 1.00, Estimated Creat Clear 95, Estimated GFR 75, Est GFR ( Amer) 91, Glucose 381 H, Calcium 9.7, Total Bilirubin 0.7, AST 31, ALT 27, Alkaline Phosphatase 85, Troponin I 0.28 H, Total Protein 7.7, Albumin 4.3, Globulin 3.4 H, Albumin/Globulin Ratio 1.3 08/10/21 11:55: SARS-CoV-2 (PCR) Not detected, Influenza A Untype (PCR) Not detected, Influenza Type B (PCR) Not detected 08/10/21 11:55: APTT 22.1 L 08/10/21 15:31: POC Glucose 207 H 08/10/21 19:05: APTT 36.3 H 08/10/21 20:19: POC Glucose 185 H 08/11/21 00:55: APTT 48.0 H 08/11/21 06:02: POC Glucose 210 H I & O for Last 24 hours: Intake & Output 08/08/21 08/09/21 08/10/21 08/11/21 11:59 11:59 11:59 11:59 Intake Total 1126 / 1126 Output Total 500 / 500 Balance 626 / 626 Weight 201 lb 200 lb 11.2 oz Narrative: Patient has mild tachypnea and conversational dyspnea. Nonrebreather is in place. Lungs remain clear. Heart has a regular rate and rhythm. Abdomen is soft. Extremities are without edema and there is no calf tenderness. Gooden catheter is anchored Assessment and Plan (1) Pulmonary emboli Status: Acute Qualifiers: Pulmonary embolism type: unspecified Chronicity: acute Acute cor pulmonale presence: with acute cor pulmonale Qualified Code(s): I26.09 - Other pulmonary embolism with acute cor pulmonale Category: Medical Code(s): I26.99 - Other pulmonary embolism without acute cor pulmonale (2) HTN (hypertension) Status: Acute Category: Medical Code(s): I10 - Essential (primary) hypertension (3) HLD (hyperlipidemia) Status: Acute Category: Medical Code(s): E78.5 - Hyperlipidemia, unspecified (4) HIV (human immunodeficiency virus infection) Status: Acute Category: Medical Code(s): B20 - Human immunodeficiency virus [HIV] disease (5) Diabetes Status: Acute Category: Medical Code(s): E11.9 - Type 2 diabetes mellitus without complications (6) Respiratory failure with hypoxia Status: Acute Qualifiers: Chronicity: acute Qualified Code(s): J96.01 - Acute respiratory failure with hypoxia Category: Medical Code(s): J96.91 - Respiratory failure, unspecified with hypoxia (7) S/P prostatectomy Status: Acute Category: Surgical Code(s): Z90.79 - Acquired absence of other genital organ(s) - Assessment and plan all Dx Assessment and Plan for all problems:: 1. Continue heparin drip 2. Start Xarelto 15 mg twice daily beginning this morning. Patient will need 48 hours of Xarelto before discontinuation of heparin drip 3. Continue oxygen support to maintain sats in the 90s and reduce tachycardia. Patient will be assessed for transition to nasal cannula.
[2021-08-11 08:07] LABS: PTT Heparin (inpatient only) 29.6 Seconds (23.6-34.0)
[2021-08-11 12:00] VITALS: BP 122/73; PULSE 84; PULSE 86; RESP 18; TEMP 36.6; O2SAT 94
--- NOTE | 2021-08-11 12:40 | HMH.PHAVTE ---
[facility] Pharmacy VTE Monitoring - Patient Demographics Admission date: 08/10/21 Report Date: 08/11/21 Time: 12:40 Allergies/Adverse Reactions: Patient Allergies No Known Allergies Allergy (Verified 07/17/21 14:34) Height: 1.68 m Weight: 91.036 kg Patient Problems: Current Active Problems S/P prostatectomy (Acute) Pulmonary emboli (Acute) Respiratory failure with hypoxia (Acute) HTN (hypertension) (Acute) HLD (hyperlipidemia) (Acute) HIV (human immunodeficiency virus infection) (Acute) Diabetes (Acute) - VTE Risk Labs: VTE Related Lab Results Hgb 14.0 g/dL (14.1-18.0) L 08/10/21 11:55 Hct 43.5 % (42.0-52.0) 08/10/21 11:55 Plt Count 321 K/mm3 (142-424) 08/10/21 11:55 APTT 29.6 Seconds (23.6-34.0) 08/11/21 07:40 BUN 22 mg/dl (9-20) H 08/10/21 11:55 Creatinine 1.00 mg/dl (0.66-1.25) 08/10/21 11:55 Estimated Creat Clear 95 mL/min (50-200) 08/10/21 11:55 Was VTE Risk Assessment Performed: No Clinical Trial Participant: No - Prophylaxis VTE Prophylaxis Ordered?: Yes Types of VTE Prophylaxis: TEDS Knee High Location of Applied Device: Bilateral Lower Extremeties
--- NOTE | 2021-08-11 12:40 | HMH.PHAINT ---
MEDICATION RECONCILIATION COMPLETE USING LIST FROM MD OFFICE VISIT AND CALL TO [facility].
--- NOTE | 2021-08-11 13:47 | PC.NURSE ---
called and ordered for heparin drip to be stopped 30 min after this evening dose of xarelto.
--- NOTE | 2021-08-11 15:15 | PC.NURSE ---
Addendum entered by Chio Tapia RN 08/11/21 17:44: HEPARIN DRIP STOPPED AT 1720. Original Note: PT IS SITTING UP IN THE CHAIR. ALERT AND ORIENTED X4. EATING AND DRINKING FAIR. O2 SATURATION HAS MAINTAINED 90-95% ON 5 L NC. LUNG SOUNDS CLEAR. ABDOMEN SOFT/NON TENDER WITH ACTIVE BOWEL SOUNDS. CATHETER DRAINING CLEAR/MARILIA URINE. PT HAS INCISION NOTED TO THE PELVIC AREA (MILD REDNESS/SWELLING). INCISION NOTED TO POSTERIOR SCROTUM. WILL CONTINUE TO MONITOR.
[2021-08-11 16:00] VITALS: BP 126/74; PULSE 92; PULSE 94; RESP 18; TEMP 36.8; O2SAT 96
[2021-08-11 18:45] LABS: PTT Heparin (inpatient only) 96.7 Seconds (23.6-34.0)
[2021-08-11 18:53] VITALS: BMI 32.2
[2021-08-11 20:00] VITALS: BP 144/82; PULSE 80; PULSE 95; RESP 17; TEMP 36.6; O2SAT 91; O2SAT 93
[2021-08-12] VITALS (7 sets, daily range): BP systolic 126–174; BP diastolic 61–98; PULSE 80–108; RESP 18–24; TEMP 36.6–37.1; O2SAT 91–98; BMI 32.8
--- NOTE | 2021-08-12 06:04 | PC.NURSE ---
Pt sat 88-89% on 4 L nc while in deep sleep. Pt was titrated up to 5 L tolerating well with sats >90%. Pt has slept well t/o shift. No complaints voiced to staff thus far. Call ho in reach.
[2021-08-12 07:31] LABS: Basophils # 0.1 K/mm3 (0-0.2); Basophils % 0.4 % (0.1-2.0); Eosinophils # 0.2 K/mm3 (0.0-0.4); Eosinophils % 1.2 % (0.1-12.0); Hematocrit 38.8 % (42.0-52.0); Hemoglobin 12.6 g/dL (14.1-18.0); Lymphocytes # 2.9 K/mm3 (0.7-4.5); Mean Corpuscular HGB Conc 32.5 g/dL (31.8-35.4); Mean Corpuscular Hemoglobin 32.1 pg (27.0-31.2); Mean Corpuscular Volume 98.9 fl (80-94); Mean Platelet Volume 8.7 fl (7.4-10.4); Monocytes # 1.1 K/mm3 (0.1-1.0); Monocytes % 7.9 % (1.7-9.3); Neutrophils # 9.4 K/mm3 (1.8-7.8); Neutrophils % 69.4 % (37.0-80.0); Platelet Count 317 K/mm3 (142-424); Red Blood Count 3.93 M/mm3 (4.60-6.20); Red Cell Distribution Width 13.4 % (11.5-17.5); White Blood Count 13.6 K/mm3 (4.8-10.8)
[2021-08-12 07:44] LABS: Anion Gap 9.6 mEq/L (5-15); Blood Urea Nitrogen 21 mg/dl (9-20); Calcium 9.1 mg/dl (8.4-10.2); Carbon Dioxide 30 mmol/L (22.0-30.0); Chloride 99 mmol/L (98-107); Creatinine Clearance Estimated 97 mL/min (50-200); Estimated Glomerular Filt Rate 85 ml/min (>60); GFR (African American) 102 ML/MIN (>60); Glucose 194 mg/dl (74-100); Potassium 3.6 mmoL/L (3.5-5.1); Sodium 135 mmol/L (136-145)
--- NOTE | 2021-08-12 08:24 | HMH.ACPN2 ---
Internal Medicine - PN: Subj *Date: 08/12/21 *Time: 08:24 Interval history: No complaints from patient. He feels dyspnea is improving. Patient was weaned to nasal cannula. Attempt to lower flow to 4 L/min resulted in mild decrease in O2 sats to the high 80s while asleep. Patient continues to have heartburn and nausea but denies chest pain. Exam Vital signs and Labs for Last 24 Hours: Temp Pulse Resp BP Pulse Ox 97.9 F 88 20 132/72 98 08/12/21 04:00 08/12/21 04:00 08/12/21 04:00 08/12/21 04:00 08/12/21 04:00 Laboratory Results - last 24 hr 08/11/21 12:35: APTT 72.0 H* 08/11/21 18:05: APTT 96.7 H* 08/12/21 06:10: WBC 13.6 H, RBC 3.93 L, Hgb 12.6 L, Hct 38.8 L, MCV 98.9 H, MCH 32.1 H, MCHC 32.5, RDW 13.4, Plt Count 317, MPV 8.7, Neut % (Auto) 69.4, Lymph % (Auto) 21.0, [place] % (Auto) 7.9, Eos % (Auto) 1.2, Baso % (Auto) 0.4, Neut # (Auto) 9.4 H, Lymph # (Auto) 2.9, [place] # (Auto) 1.1 H, Eos # (Auto) 0.2, Baso # (Auto) 0.1 08/12/21 06:10: Sodium 135 L, Potassium 3.6, Chloride 99, Carbon Dioxide 30, Anion Gap 9.6, BUN 21 H, Creatinine 0.90, Estimated Creat Clear 97, Estimated GFR 85, Est GFR ( Amer) 102, Glucose 194 H, Calcium 9.1 I & O for Last 24 hours: Intake & Output 08/09/21 08/10/21 08/11/21 08/12/21 11:59 11:59 11:59 11:59 Intake Total 1126 / 1126 774 / 774 Output Total 900 / 900 1000 / 1000 Balance 226 / 226 -226 / -226 Weight 201 lb 200 lb 11.2 oz 204 lb 4.8 oz Narrative: Patient looks more comfortable today. Oropharynx is moist. Lungs are clear. Heart has a regular rate and rhythm. Abdomen is soft and obese. Gooden catheter is anchored Assessment and Plan (1) Pulmonary emboli Status: Acute Qualifiers: Pulmonary embolism type: unspecified Chronicity: acute Acute cor pulmonale presence: with acute cor pulmonale Qualified Code(s): I26.09 - Other pulmonary embolism with acute cor pulmonale Category: Medical Code(s): I26.99 - Other pulmonary embolism without acute cor pulmonale (2) HTN (hypertension) Status: Acute Category: Medical Code(s): I10 - Essential (primary) hypertension (3) HLD (hyperlipidemia) Status: Acute Category: Medical Code(s): E78.5 - Hyperlipidemia, unspecified (4) HIV (human immunodeficiency virus infection) Status: Acute Category: Medical Code(s): B20 - Human immunodeficiency virus [HIV] disease (5) Diabetes Status: Acute Category: Medical Code(s): E11.9 - Type 2 diabetes mellitus without complications (6) Respiratory failure with hypoxia Status: Acute Qualifiers: Chronicity: acute Qualified Code(s): J96.01 - Acute respiratory failure with hypoxia Category: Medical Code(s): J96.91 - Respiratory failure, unspecified with hypoxia (7) S/P prostatectomy Status: Acute Category: Surgical Code(s): Z90.79 - Acquired absence of other genital organ(s) - Assessment and plan all Dx Assessment and Plan for all problems:: 1. Heparin drip has been discontinued. Xarelto started yesterday. Continue 15 mg twice daily for 3 weeks and then transition to 20 mg tablet daily 2. Patient will start incentive spirometer today 3. Restart patient's postop prophylactic antibiotic of cefuroxime 4. Continue attempts to wean oxygen as tolerated while keeping sats greater than 90% and avoiding tachycardia
--- NOTE | 2021-08-12 20:30 | PC.NURSE ---
This RN noted bright red urine draining by pt mata at this time. Pt actively having nausea/vomiting. Pt had been unable to take scheduled 1730 Zarelto during previous shift due to N/V. Pt was administered PRN Phenergan with favorable results. section gang worker made aware. New orders to D/C scheduled Zarelto/hold tonights dose and administer Lovenox SQ 1mg/kg ONCE. Orders read back and verified and carried out.
--- NOTE | 2021-08-12 22:26 | PC.NURSE ---
RN Notified that BP is Elevated at this time. BP Checked Manually by the SRNA.
--- NOTE | 2021-08-12 22:30 | PC.NURSE ---
2230 This RN was notified of pt manual BP 174/98, manual HR 112 2238 Pt assessed and appears diaphoretic and is c/o mid chest pain that is constant, does not radiate and nausea. 2345 EKG performed. [address] Navarro. New orders for Heparin IV 1mg/kg , Chest CTA. Read back and verified and carried out. 0020 radiology notified this RN of CTA results. [address] of CTA results. New orders to get another STAT EKG. to enter order 0035 Notified RT need for stat EKG 0050 RT up to rom to perform STAT EKG. 0059 ER MD read EKG, no new orders at this time.
--- NOTE | 2021-08-12 22:54 | CT_ITS ---
PROCEDURE INFORMATION: Exam: CTA Chest With Contrast Exam date and time: 08/12/2021 10:54 PM Age: 66 years old Clinical indication: Pain; Shortness of breath; Chest pressure; Additional info: Chest pain, known pe TECHNIQUE: Imaging protocol: Computed tomographic angiography of the chest with contrast. 3D rendering (Not supervised by radiologist): MIP and/or 3D reconstructed images were created by the technologist. Radiation optimization: All CT scans at this facility use at least one of these dose optimization techniques: automated exposure control; mA and/or kV adjustment per patient size (includes targeted exams where dose is matched to clinical indication); or iterative reconstruction. Contrast material: ISOVUE 370; Contrast volume: 70 ml; Contrast route: INTRAVENOUS (IV); COMPARISON: CT ANGIO CHEST PE PROTOCOL 08/10/2021 12:38 PM FINDINGS: Pulmonary arteries: Positive pulmonary embolism involving the segmental branches of the left upper lobe pulmonary artery, left lower lobe pulmonary artery, right upper lobe pulmonary artery and right lower lobe pulmonary artery. Aorta: Unremarkable. No aortic aneurysm. No aortic dissection. Lungs: In the lung bases there is mild atelectasis. Pleural spaces: Tiny right pleural effusion. Heart: Unremarkable. No cardiomegaly. No pericardial effusion. Mediastinal space: Upper abdomen reveals wall thickening of the distal esophagus with mild infiltration of the surrounding fat which could indicate esophagitis in these findings extend into the GE junction. Stomach is distended with air-fluid level partially imaged which could indicate gastritis. Lymph nodes: Unremarkable. No enlarged lymph nodes. Bones/joints: Multilevel anterior bridging osteophyte formation in the thoracic spine. No acute fracture. Soft tissues: Unremarkable. IMPRESSION: 1. Positive PE in the bilateral upper lobe and lower lobe segmental branches. There is no evidence for right heart strain at this time. 2. Inflammation in the GE junction and distal esophagus concerning for esophagitis/gastritis.
--- NOTE | 2021-08-12 23:00 | PC.NURSE ---
2nd in nurse here for stat EKG on this pt. Dr. Navarro sent ekg for Dr. Velasquez to read. New orders: STAT CTA PE protocol, CBC, CMP, troponin, and Heparin 100units/kg (9,300units IVP) one time.
--- NOTE | 2021-08-12 23:11 | PC.NURSE ---
patient off floor to Rad @ this time.
[2021-08-12 23:18] LABS: Basophils # 0.1 K/mm3 (0-0.2); Eosinophils % 0.1 % (0.1-12.0); Lymphocytes # 2.1 K/mm3 (0.7-4.5)
--- NOTE | 2021-08-12 23:23 | PC.NURSE ---
patient back to floor from [facility] @ this time.
[2021-08-12 23:25] LABS: Alanine Aminotransferase 22 U/L (12-78); Albumin Level 4.1 g/dl (3.5-5.0); Albumin/Globulin Ratio 1.4 (1.1-1.8); Alkaline Phosphatase 83 U/L (38-126); Anion Gap 13.7 mEq/L (5-15); Aspartate Amino Transferase 23 U/L (17-59); Basophils % 0.6 % (0.1-2.0); Bilirubin,Total 0.8 mg/dl (0.2-1.3); Blood Urea Nitrogen 23 mg/dl (9-20); Calcium 9.4 mg/dl (8.4-10.2); Carbon Dioxide 31 mmol/L (22.0-30.0); Chloride 96 mmol/L (98-107); Creatinine Clearance Estimated 97 mL/min (50-200); Estimated Glomerular Filt Rate 75 ml/min (>60); GFR (African American) 91 ML/MIN (>60); Glucose 273 mg/dl (74-100); Hematocrit 43.1 % (42.0-52.0); Lymphocytes % 12.5 % (10-50); Mean Corpuscular HGB Conc 32.9 g/dL (31.8-35.4); Mean Corpuscular Hemoglobin 32.7 pg (27.0-31.2); Mean Corpuscular Volume 99.3 fl (80-94); Mean Platelet Volume 8.8 fl (7.4-10.4); Monocytes # 1.5 K/mm3 (0.1-1.0); Monocytes % 9.2 % (1.7-9.3); Neutrophils # 12.9 K/mm3 (1.8-7.8); Neutrophils % 77.6 % (37.0-80.0); Platelet Count 380 K/mm3 (142-424); Potassium 3.7 mmoL/L (3.5-5.1); Red Blood Count 4.34 M/mm3 (4.60-6.20); Red Cell Distribution Width 13.4 % (11.5-17.5); Sodium 137 mmol/L (136-145); Total Protein,Serum 7.1 g/dl (6.3-8.2); White Blood Count 16.6 K/mm3 (4.8-10.8)
[2021-08-12 23:26] LABS: Hemoglobin 14.2 g/dL (14.1-18.0)
[2021-08-12 23:27] LABS: MANUAL DIFFERENTIAL MANUAL DIFFERENTIAL (MANUAL DIFF)
[2021-08-12 23:37] LABS: Lymphocytes % 19 % (10-50); Monocytes % 3 % (2-9); Neutrophils % 76 % (42-76); Platelet Estimate Normal; RBC Morphology Normal; Total Cells Counted 100; Troponin I 0.11 ng/ml (0.00-0.034)
[2021-08-13] VITALS (7 sets, daily range): BP systolic 130–186; BP diastolic 67–82; PULSE 70–117; RESP 14–22; TEMP 36.8–37.3; O2SAT 91–99; BMI 32.7
--- NOTE | 2021-08-13 00:25 | ECG_ITS ---
APPROVED REPORT Exam: Resting ECG HR:116 bpm ECG Measurements Heart Rate 116 AXES AK 142 P 40 QRSd 96 QRS 35 QT 372 T 9 QTc 517 Conclusion Sinus tachycardia Inferior infarct, age undetermined ST & T wave abnormality, consider anterolateral ischemia Abnormal ECG Electronically signed by : Yefri Mchugh MD 08/16/2021 13:52:05
--- NOTE | 2021-08-13 00:57 | ECG_ITS ---
APPROVED REPORT Exam: Resting ECG HR:104 bpm ECG Measurements Heart Rate 104 AXES MT 150 P 45 QRSd 100 QRS 36 QT 384 T 15 QTc 504 Conclusion Sinus tachycardia Inferior infarct, age undetermined T wave abnormality, consider anterolateral ischemia Abnormal ECG Electronically signed by : Yefri Mchugh MD 08/16/2021 13:51:31
--- NOTE | 2021-08-13 07:30 | CA_ITS ---
FINAL REPORT CLINICAL HISTORY: BILATERAL PE'S,HYPOXIA FINDINGS: Color Doppler, duplex Doppler and compression sonography of the bilateral lower extremities was performed. There is thrombus in the right posterior tibial and gastrocnemius veins. There is no evidence of DVT in the more proximal right lower extremity. There is no evidence of deep venous thrombosis from the level of the groin to the calf in the left lower extremity. The deep veins are patent and compressible. IMPRESSION: DVT involving the right posterior tibial and gastrocnemius veins. No evidence of left lower extremity DVT. Reviewed, Interpreted and Dictated by Asif Ortiz III, MD Transcribed by Handy Silva Authenticated by Asif Ortiz III, MD on 08/13/2021 08:33:47 AM [facility]
--- NOTE | 2021-08-13 07:30 | HMH.ACPN2 ---
Internal Medicine - PN: Subj *Date: 08/13/21 *Time: 07:30 Interval history: Yesterday evening patient developed nausea and unrelenting vomiting. Patient became tachycardic with slight increase in oxygen requirement. Patient admits he had difficulty with nasal cannula due to dry nasal passages and he was placed on simple facemask. Because of vomiting patient Xarelto was held and he was given Lovenox instead. Once patient became tachycardic Dr. Velasquez was contacted and patient underwent repeat CT angiogram which showed bilateral pulmonary embolisms but no right heart strain. Patient had also been given a loading dose of heparin. This morning patient's nausea and vomiting have improved. Dyspnea is slightly worse compared to yesterday per patient. Additional finding on the CT angiogram was findings of esophagitis and patient admits to longstanding history of heartburn. Patient's last bowel movement was also 3 days ago. Exam Vital signs and Labs for Last 24 Hours: Temp Pulse Resp BP Pulse Ox 98.9 F 95 H 14 130/79 98 08/13/21 04:00 08/13/21 04:00 08/13/21 04:00 08/13/21 04:00 08/13/21 04:00 Laboratory Results - last 24 hr 08/12/21 06:10: WBC 13.6 H, RBC 3.93 L, Hgb 12.6 L, Hct 38.8 L, MCV 98.9 H, MCH 32.1 H, MCHC 32.5, RDW 13.4, Plt Count 317, MPV 8.7, Neut % (Auto) 69.4, Lymph % (Auto) 21.0, [place] % (Auto) 7.9, Eos % (Auto) 1.2, Baso % (Auto) 0.4, Neut # (Auto) 9.4 H, Lymph # (Auto) 2.9, [place] # (Auto) 1.1 H, Eos # (Auto) 0.2, Baso # (Auto) 0.1 08/12/21 06:10: Sodium 135 L, Potassium 3.6, Chloride 99, Carbon Dioxide 30, Anion Gap 9.6, BUN 21 H, Creatinine 0.90, Estimated Creat Clear 97, Estimated GFR 85, Est GFR ( Amer) 102, Glucose 194 H, Calcium 9.1 08/12/21 23:06: WBC 16.6 H, RBC 4.34 L, Hgb 14.2 D, Hct 43.1, MCV 99.3 H, MCH 32.7 H, MCHC 32.9, RDW 13.4, Plt Count 380, MPV 8.8, Neut % (Auto) 77.6, Lymph % (Auto) 12.5, [place] % (Auto) 9.2, Eos % (Auto) 0.1, Baso % (Auto) 0.6, Neut # (Auto) 12.9 H, Lymph # (Auto) 2.1, [place] # (Auto) 1.5 H, Eos # (Auto) 0.0, Baso # (Auto) 0.1, Total Counted 100, Neutrophils % (Manual) 76, Band Neutrophils % 2.0, Lymphocytes % (Manual) 19, Monocytes % (Manual) 3, Platelet Estimate Normal, RBC Morphology Normal 08/12/21 23:06: Sodium 137, Potassium 3.7, Chloride 96 L, Carbon Dioxide 31 H, Anion Gap 13.7, BUN 23 H, Creatinine 1.00, Estimated Creat Clear 97, Estimated GFR 75, Est GFR ( Amer) 91, Glucose 273 H D, Calcium 9.4, Total Bilirubin 0.8, AST 23 D, ALT 22, Alkaline Phosphatase 83, Troponin I 0.11 H, Total Protein 7.1, Albumin 4.1, Globulin 3.0, Albumin/Globulin Ratio 1.4 08/13/21 05:25: Troponin I 0.10 H I & O for Last 24 hours: Intake & Output 08/10/21 08/11/21 08/12/21 08/13/21 11:59 11:59 11:59 11:59 Intake Total 1126 / 1126 1254 / 1254 240 / 240 Output Total 900 / 900 1150 / 1150 1425 / 1425 Balance 226 / 226 104 / 104 -1185 / -1185 Weight 201 lb 200 lb 11.2 oz 204 lb 4.8 oz 203 lb 8 oz - Constitutional no acute distress - *Routine Respiratory Exam Present: CTA bilaterally - *Routine Cardiovascular Exam Present: RRR Assessment and Plan (1) Pulmonary emboli Status: Acute Qualifiers: Pulmonary embolism type: unspecified Chronicity: acute Acute cor pulmonale presence: with acute cor pulmonale Qualified Code(s): I26.09 - Other pulmonary embolism with acute cor pulmonale Category: Medical Code(s): I26.99 - Other pulmonary embolism without acute cor pulmonale (2) HTN (hypertension) Status: Acute Category: Medical Code(s): I10 - Essential (primary) hypertension (3) HLD (hyperlipidemia) Status: Acute Category: Medical Code(s): E78.5 - Hyperlipidemia, unspecified (4) HIV (human immunodeficiency virus infection) Status: Acute Category: Medical Code(s): B20 - Human immunodeficiency virus [HIV] disease (5) Diabetes Status: Acute Category: Medical Code(s): E11.9 - Type 2 diabetes mellitus without complications
--- NOTE | 2021-08-13 08:31 | PC.NURSE ---
Pt has rested well once Reglan/Pepcid were administered. Pt has not voiced an complaints since. Abdomen continues to be distended but is not tender with palpation. Pt continues to receive 6L O2 via simple mask, tolerating well with sats in mid/upper 90s. Call light within reach.
--- NOTE | 2021-08-13 08:38 | CA_ITS ---
APPROVED REPORT EXAM: Comprehensive 2D, Doppler, and color-flow Echocardiogram Cranberry Sorter: Liliana Arana CRT Ht: 5 ft 6 in Wt: 204lbs BSA: 2.02 BP: 134/86 mmHg Indications: PE, CP, ABN EKG M-Mode Dimensions RVDd 3.26 cm (0.9-2.6) LA Diam 3.71 cm (1.9-4.0) LVDd 4.65 cm (3.5-5.7) Ao Diam 3.92 cm (2.0-3.7) LVDs 3.34 cm (3.5-5.7) IVSd 1.40 cm (0.6-1.1) PWd 1.06 cm (0.6-1.1) EF (Teich) 54.50% FS 28.20% EDV (Teich) 99.80 mL TAPSE 1.93 (<1.7) ESV (Teich) 45.40 mL Tricuspid Valve TR P. Velocity 292.00 cm/s RAP Estimate 10.00 mmHg RVSP 44.20 mmHg Conclusion 1. Limited study was performed, technically difficult, endocardial surfaces are very poorly visualized. 2. Biatrial enlargement, normal left ventricular size, visually estimated left ventricular ejection fraction 50% with no regional wall motion abnormality in the obtained views 3. Moderately enlarged right ventricle with mild reduced contractility. 4. Mild mitral and tricuspid regurgitation, calculated right ventricular systolic pressure is 44 mmHg. 5. No significant pericardial effusion noted. Electronically signed by : Vivek Castillo MD 08/13/2021 13:46:59
--- NOTE | 2021-08-13 09:20 | PC.NURSE ---
Dr. Bennett made aware of VDS results reported to this rn by radiology.
--- NOTE | 2021-08-13 11:35 | HMH.PNCARD ---
Subjective Date: 08/13/21 Time: 11:35 Principal diagnosis: Bilat PE's, RLE DVT Interval history: 66-year-old white male lying in bed in no acute distress. Still requiring oxygen but by Ventimask due to intolerance of nasal cannula drying his nose. Repeat echocardiogram this morning to assess for right heart strain is pending. Lower extremity venous Doppler is pertinent for right lower extremity DVT. Nausea/vomiting seems to have improved and patient is now back on oral anticoagulation in the form of Xarelto. Exam Vital signs and Labs for Last 24 Hours: Temp Pulse Resp BP Pulse Ox 99.0 F 82 16 135/80 99 08/13/21 08:00 08/13/21 08:00 08/13/21 08:00 08/13/21 08:00 08/13/21 08:00 Laboratory Results - last 24 hr 08/12/21 23:06: WBC 16.6 H, RBC 4.34 L, Hgb 14.2 D, Hct 43.1, MCV 99.3 H, MCH 32.7 H, MCHC 32.9, RDW 13.4, Plt Count 380, MPV 8.8, Neut % (Auto) 77.6, Lymph % (Auto) 12.5, [place] % (Auto) 9.2, Eos % (Auto) 0.1, Baso % (Auto) 0.6, Neut # (Auto) 12.9 H, Lymph # (Auto) 2.1, [place] # (Auto) 1.5 H, Eos # (Auto) 0.0, Baso # (Auto) 0.1, Total Counted 100, Neutrophils % (Manual) 76, Band Neutrophils % 2.0, Lymphocytes % (Manual) 19, Monocytes % (Manual) 3, Platelet Estimate Normal, RBC Morphology Normal 08/12/21 23:06: Sodium 137, Potassium 3.7, Chloride 96 L, Carbon Dioxide 31 H, Anion Gap 13.7, BUN 23 H, Creatinine 1.00, Estimated Creat Clear 97, Estimated GFR 75, Est GFR ( Amer) 91, Glucose 273 H D, Calcium 9.4, Total Bilirubin 0.8, AST 23 D, ALT 22, Alkaline Phosphatase 83, Troponin I 0.11 H, Total Protein 7.1, Albumin 4.1, Globulin 3.0, Albumin/Globulin Ratio 1.4 08/13/21 05:25: Troponin I 0.10 H I & O for Last 24 hours: Intake & Output 08/10/21 08/11/21 08/12/21 08/13/21 11:59 11:59 11:59 11:59 Intake Total 1126 / 1126 1254 / 1254 240 / 240 Output Total 900 / 900 1150 / 1150 1950 / 1950 Balance 226 / 226 104 / 104 -1710 / -1710 Weight 201 lb 200 lb 11.2 oz 204 lb 4.8 oz 203 lb 8 oz - Constitutional no acute distress - *Routine HEENT Exam Head: Present: normocephalic Eye: Present: EOMI, PERRL ENT: Present: mucous membranes moist - *Routine Neck Exam Present: supple. Absent: lymphadenopathy - *Routine Respiratory Exam Present: CTA bilaterally - *Routine Cardiovascular Exam Present: RRR - *Routine Abdominal Exam Present: soft, normoactive bowel sounds. Absent: tenderness - *Routine Extremities Exam Absent: cyanosis, clubbing, edema - *Routine Skin Exam Present: warm. Absent: rash - *Routine Neurological Exam Present: alert, oriented X3 Progress Note: A&P (1) Pulmonary emboli Status: Acute (2) HTN (hypertension) Status: Acute (3) HLD (hyperlipidemia) Status: Acute (4) HIV (human immunodeficiency virus infection) Status: Acute (5) Diabetes Status: Acute (6) Respiratory failure with hypoxia Status: Acute (7) S/P prostatectomy Status: Acute (8) Esophagitis Status: Acute (9) Right leg DVT Status: Acute Assessment and Plan for All Diagnoses:: 1. Bilateral pulmonary emboli, respiratory failure, hypoxia with right lower extremity DVT, slowly improving. Continue Xarelto 15 mg twice daily for a total of 21 days and then switching to 20 mg once daily thereafter. He will need to be on this for at least 6 months. 2. Hypertension, controlled 3. Hyperlipidemia, on statin therapy 4. HIV positive, on Genvoya therapy 5. Nausea/vomiting felt likely related to esophagitis, now on IV PPI therapy.
[2021-08-14] VITALS: BP 139/85; PULSE 70; PULSE 75; RESP 16; TEMP 36.8; O2SAT 95
[2021-08-14 04:00] VITALS: BP 125/76; PULSE 79; PULSE 80; RESP 16; TEMP 36.6; O2SAT 93
[2021-08-14 05:39] VITALS: BMI 32.7
--- NOTE | 2021-08-14 05:49 | PC.NURSE ---
Pt has not stated any complaints this shift. Denies any soa. Abdomen is no longer tender. No N/V. VS have remained stable. Pt has remained on 35% venti mask. O2 sats in low 90s. Will attempt to titrate after pt wakes this AM. RLE is equally warm as LLE at this time. Pedal pulse is palpable. Pt denies any discomfort to RLE. No other concerns. Will continue to monitor.
--- NOTE | 2021-08-14 07:30 | HMH.ACPN2 ---
Internal Medicine - PN: Subj *Date: 08/14/21 *Time: 07:30 Interval history: Patient feels better this morning. He denies shortness of breath. Appetite has been better. Venous Doppler of the lower extremities yesterday showed DVT in right lower extremities Exam Vital signs and Labs for Last 24 Hours: Temp Pulse Resp BP Pulse Ox 97.9 F 79 16 125/76 93 L 08/14/21 04:00 08/14/21 04:00 08/14/21 04:00 08/14/21 04:00 08/14/21 04:00 I & O for Last 24 hours: Intake & Output 08/11/21 08/12/21 08/13/21 08/14/21 11:59 11:59 11:59 11:59 Intake Total 1126 / 1126 1254 / 1254 360 / 360 360 / 360 Output Total 900 / 900 1150 / 1150 1950 / 1950 Balance 226 / 226 104 / 104 -1590 / -1590 360 / 360 Weight 200 lb 11.2 oz 204 lb 4.8 oz 203 lb 8 oz 203 lb 12.8 oz - Constitutional no acute distress - *Routine Respiratory Exam Present: CTA bilaterally - *Routine Cardiovascular Exam Present: RRR - *Routine Extremities Exam Absent: cyanosis, clubbing, edema Assessment and Plan (1) Pulmonary emboli Status: Acute Qualifiers: Pulmonary embolism type: unspecified Chronicity: acute Acute cor pulmonale presence: with acute cor pulmonale Qualified Code(s): I26.09 - Other pulmonary embolism with acute cor pulmonale Category: Medical Code(s): I26.99 - Other pulmonary embolism without acute cor pulmonale (2) HTN (hypertension) Status: Acute Category: Medical Code(s): I10 - Essential (primary) hypertension (3) HLD (hyperlipidemia) Status: Acute Category: Medical Code(s): E78.5 - Hyperlipidemia, unspecified (4) HIV (human immunodeficiency virus infection) Status: Acute Category: Medical Code(s): B20 - Human immunodeficiency virus [HIV] disease (5) Diabetes Status: Acute Category: Medical Code(s): E11.9 - Type 2 diabetes mellitus without complications (6) Respiratory failure with hypoxia Status: Acute Qualifiers: Chronicity: acute Qualified Code(s): J96.01 - Acute respiratory failure with hypoxia Category: Medical Code(s): J96.91 - Respiratory failure, unspecified with hypoxia (7) S/P prostatectomy Status: Acute Category: Surgical Code(s): Z90.79 - Acquired absence of other genital organ(s) (8) Esophagitis Status: Acute Category: Medical Code(s): K20.90 - Esophagitis, unspecified without bleeding (9) Right leg DVT Status: Acute Category: Medical Code(s): I82.401 - Acute embolism and thrombosis of unspecified deep veins of right lower extremity - Assessment and plan all Dx Assessment and Plan for all problems:: 1. Patient will be discharged home today. Home oxygen will be arranged. Patient will continue Xarelto 15 mg twice daily for total of 21 days before transitioning to 20 mg daily. 2. Patient will be continued on a PPI and Reglan for his esophagitis
--- NOTE | 2021-08-14 07:33 | HMH.DCSUM ---
General - General Admission date:: 08/10/21 Discharge date: 08/14/21 HPI HPI: 66 year old male with recent surgery for artificial urinary sphincter implantation on 07/30/21 presnted to the office with complaint of cough, chest congestion, and shortness of breath for 3 days. Cough was minimally productive. Dyspnea had worsened each day and had associated chest tightness. Patient denied hemoptysis, radiation of chest tightness. Patient claimed fever to 101 at home. IN office patient was in respiratory distress with sats of 80% and tachycardia. Covid test was negative. Due to his respiratory distress patient was sent to ER for emergent workup due to concern of PE vs. RI. In ER patient found to have multiple PEs and evidence of right heart strain. Hypoxia and tachycardia correted with nonrebreather. Cardiology was consulted and recommended Heparin Drip. Hospital Course Hospital Course: Patient was admitted and placed on heparin drip for treatment of bilateral pulmonary embolism with most severe emboli being in the right main pulmonary artery. Patient was kept on heparin for 24 hours and then heparin was discontinued after Xarelto therapy had been initiated. Patient was started on Xarelto 15 mg twice daily. Patient improved gradually. On August 12 patient had an episode of chest pain. Repeat CTA of the chest was performed which showed only the peripheral pulmonary emboli with apparent absence of the right main pulmonary artery embolus. That CT scan did show findings of esophagitis which is the patient's source of chest pain. He admitted to longstanding history of untreated GERD. Patient was started on IV Protonix and Reglan. Nausea, chest pain resolved and appetite improved. On the patient had almost complete resolution of shortness of breath. Patient was able to ambulate in his room. Patient still had mild oxygen requirement with resting room air sat of 88%. Patient was discharged home with supplemental oxygen. 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 Patient will follow-up in the office in 48 hours. Patient will also continue pantoprazole and Reglan for his esophagitis. Objective Vital signs: Temp Pulse Resp BP Pulse Ox 97.9 F 79 16 125/76 93 L 08/14/21 04:00 08/14/21 04:00 08/14/21 04:00 08/14/21 04:00 08/14/21 04:00 DS: Diagnosis - Discharge Diagnosis (1) Pulmonary emboli Status: Acute (2) HTN (hypertension) Status: Acute (3) HLD (hyperlipidemia) Status: Acute (4) HIV (human immunodeficiency virus infection) Status: Acute (5) Diabetes Status: Acute (6) Respiratory failure with hypoxia Status: Acute (7) S/P prostatectomy Status: Acute (8) Esophagitis Status: Acute (9) Right leg DVT Status: Acute Discharge Plan - Patient Discharge Instructions ACTIVITY: Continue current activity DIET: continue same diet Additional Instructions: 1. Use Incentive spiromter hourly while at home 2. Stop by Dr. Bennett office on the way home for samples of your blood thinner(Xarelto) Patient Instructions: Pulmonary Embolism, DI for Pulmonary Embolism - Follow up Plan Follow up with: Yefri Bennett MD [Primary Care Provider] - 08/17/21 Disposition: Home, Self-Care Condition at discharge:: Improved Home Medications: Home Medications Medication Instructions Recorded Confirmed Type Atorvastatin Calcium [Atorvastatin 10 mg PO DAILY 01/27/18 08/10/21 History 10mg Tab] Elviteg/Flora/Emtric/Tenofo Ala 1 each PO DAILY 01/27/18 08/10/21 History [Genvoya Tablet] Fenofibrate [Fenoglide] 145 mg PO DAILY 01/27/18 08/10/21 History Sitagliptin Phosphate [Januvia 50 mg PO DAILY 01/27/18 08/10/21 History 50mg Tablet] Liraglutide [Victoza 3-Rogelio] 1.2 mg SQ DAILY 08/10/21 08/10/21 History cefUROXime axetiL [Ceftin 500mg 500 mg PO BID 08/10/21 08/10/21 History Tab (GEQ)] glipiZIDE [Glipizide] 10 mg PO DAILY 08/10/21 08/11/21 His
[2021-08-14 08:00] VITALS: BP 150/72; PULSE 95; RESP 17; TEMP 36.9; O2SAT 86; O2SAT 93
--- NOTE | 2021-08-14 08:20 | HMH.PNCARD ---
Subjective Date: 08/14/21 Time: 08:20 Principal diagnosis: Bilat PE's, RLE DVT Interval history: No complaints overnight. Breathing continues to improve but still requiring supplemental oxygen. Echo yesterday shows right heart enlargement stable with indication of improved contraction. RVSP of 44 mm Hg. Plan is to be discharged home today. Exam Vital signs and Labs for Last 24 Hours: Temp Pulse Resp BP Pulse Ox 98.5 F 95 H 17 150/72 H 86 L 08/14/21 08:00 08/14/21 08:00 08/14/21 08:00 08/14/21 08:00 08/14/21 08:00 I & O for Last 24 hours: Intake & Output 08/11/21 08/12/21 08/13/21 08/14/21 11:59 11:59 11:59 11:59 Intake Total 1126 / 1126 1254 / 1254 360 / 360 360 / 360 Output Total 900 / 900 1150 / 1150 1950 / 1950 Balance 226 / 226 104 / 104 -1590 / -1590 360 / 360 Weight 200 lb 11.2 oz 204 lb 4.8 oz 203 lb 8 oz 203 lb 12.8 oz - *Routine Respiratory Exam Present: CTA bilaterally, diminished air movement - *Routine Cardiovascular Exam Present: RRR Progress Note: A&P (1) Pulmonary emboli Status: Acute (2) HTN (hypertension) Status: Acute (3) HLD (hyperlipidemia) Status: Acute (4) HIV (human immunodeficiency virus infection) Status: Acute (5) Diabetes Status: Acute (6) Respiratory failure with hypoxia Status: Acute (7) S/P prostatectomy Status: Acute (8) Esophagitis Status: Acute (9) Right leg DVT Status: Acute Assessment and Plan for All Diagnoses:: PE diagnosed on 08/10/2021, initially treated with heparin and lovenox. Continue Xarelto 15 mg BID for total of 21 days (started 08/13/2021) then 20 mg daily thereafter. Follow up in 1-2 wks.
--- NOTE | 2021-08-14 09:55 | SW/DCPLANNER ---
PATIENT IS DISCHARGING HOME TODAY AND NEEDS HOME 02.. THIS IS SET UP WITH [facility].. A PORTABLE TANK WILL BE DELIVERED TO HIS ROOM TODAY PRIOR TO DISCHARGE...
[2021-08-14 10:01] VITALS: O2SAT 93
--- NOTE | 2021-08-14 12:22 | PC.NURSE ---
attempted to place leg bag on patient. family and patient stated that the hose wasn't long enough and didnt want it placed at this time. informed that the only equipment for leg bags that i have available, have been provided to him. family states that they will get the tubing somewhere else and put it on . leg bag sent home with pt.
== END 2021-08-14 11:45 | disposition home or self-care (01) | DRG 175 ==
LOC: ER 13:57 → 2ND 16:18
PROVIDERS: Emergency Medicine; Internal Medicine; Admitting Provider Family Medicine; Emergency Provider Emergency Medicine; PCP Family Medicine; Visit Provider Family Medicine
DX: I26.09 Other pulmonary embolism with acute cor pulmonale (principal); J96.01 Acute respiratory failure with hypoxia; B20 Human immunodeficiency virus [HIV] disease; I82.441 Acute embolism and thrombosis of right tibial vein; E11.9 Type 2 diabetes mellitus without complications; Z79.84 Long term (current) use of oral hypoglycemic drugs; Z20.822 Contact with and (suspected) exposure to COVID-19; Z87.891 Personal history of nicotine dependence; E78.5 Hyperlipidemia, unspecified; K20.90 Esophagitis, unspecified without bleeding; R31.9 Hematuria, unspecified; I10 Essential (primary) hypertension; I82.461 Acute embolism and thrombosis of right calf muscular vein
CPT/HCPCS: 36415; 71045; 71275; 80048; 80053; 82962; 84484; 85007; 85025; 85730; 93005; 93306; 93308; 93970; 96365; 96375; 99285; C9803; J2405; Q9967; U0003; U0005

== ENCOUNTER 2021-08-25 08:38 | Inpatient (IN) | payer BC, SELFPAY ==
[2021-08-25] VITALS (10 sets, daily range): BP systolic 95–148; BP diastolic 49–84; PULSE 100–113; RESP 18–21; TEMP 36.6–38; O2SAT 94–97; BMI 34.8; BMI 33.7
--- NOTE | 2021-08-25 08:57 | XR_ITS ---
PROCEDURE INFORMATION: Exam: XR Chest Exam date and time: 08/25/2021 8:57 AM Age: 66 years old Clinical indication: Shortness of breath TECHNIQUE: Imaging protocol: XR of the chest. Views: 1 view. COMPARISON: CR XR CHEST PORTABLE 08/10/2021 12:58 PM FINDINGS: Lungs: Emphysematous change and mild interstitial prominence. Pleural spaces: No significant pleural effusion. Heart/Mediastinum: No cardiomegaly. Diaphragm: Asymmetric elevation of the right hemidiaphragm. Bones/joints: Degenerative change. Other findings: Partial obscuration of the apices by the patient's mandible. IMPRESSION: Emphysematous change and mild interstitial prominence.
--- NOTE | 2021-08-25 08:58 | CT_ITS ---
PROCEDURE INFORMATION: Exam: CTA Chest With Contrast Exam date and time: 08/25/2021 8:58 AM Age: 66 years old Clinical indication: Dyspnea and shortness of breath; Additional info: Worse dyspnea, recent bilateral pe diagnosis TECHNIQUE: Imaging protocol: Computed tomographic angiography of the chest with contrast. 3D rendering (Not supervised by radiologist): MIP and/or 3D reconstructed images were created by the technologist. Radiation optimization: All CT scans at this facility use at least one of these dose optimization techniques: automated exposure control; mA and/or kV adjustment per patient size (includes targeted exams where dose is matched to clinical indication); or iterative reconstruction. Contrast material: ISOVUE; Contrast volume: 70 ml; Contrast route: INTRAVENOUS (IV); COMPARISON: CT ANGIO CHEST PE PROTOCOL 08/12/2021 11:02 PM FINDINGS: Pulmonary arteries: Bilateral pulmonary emboli. Aorta: Calcification and ectasia of the thoracic aorta. Lungs: Emphysematous change, interstitial prominence, and trace airspace disease. Pleural spaces: No significant pleural effusion. Heart: Left ventricular hypertrophy. RV/LV ratio equals 1.0. Lymph nodes: Subcentimeter lymph nodes. Upper abdomen: Hepatic granuloma. Poorly defined hyperdensity in the borderline enlarged spleen. Bones/joints: Osteopenia , degenerative change, ligamentous calcification. Soft tissues: Unremarkable. IMPRESSION: 1. Bilateral pulmonary emboli. 2. Additional findings as described above. The aforementioned findings initiated a critical results communication pathway. An addendum will be issued at the time of clincian notification.
--- NOTE | 2021-08-25 08:59 | HMH.EDGENADL ---
ED Disposition Clinical Impression: GI bleed Disposition: Admitted As Inpatient Condition on Discharge: Fair - Critical Care Critical Care Time: No Attestation: On 08/25/21, the high probability of a clinically significant, sudden or life threatening deterioration of the following system(s) required my full and direct attention, intervention and personal management. The time I documented below is in addition to time spent performing reported procedures but includes the following listed in this critical care notation. Medical Decision Making - Hernandez Inquiry Pt receiving controlled substance: No Vital Signs: 08/25/21 08:38 08/25/21 10:40 08/25/21 10:45 Temperature 98.4 F Temperature Source Oral Pulse Rate 103 H 100 H Pulse Rate [Left Radial] 109 H Respiratory Rate 18 Blood Pressure 128/84 Blood Pressure [Right Arm] 116/75 Blood Pressure Mean Blood Pressure Mean [Right Arm] 88 Blood Pressure Source [Right Arm] Automatic Cuff Blood Pressure Position [Right Arm] Sitting 02 Sat by Pulse Oximetry 95 94 L 96 Oxygen Delivery Method Nasal Cannula Oxygen Flow Rate (LPM) 1 08/25/21 11:00 08/25/21 11:30 08/25/21 12:00 Temperature 97.8 F Temperature Source Oral Pulse Rate 105 H 106 H 102 H Pulse Rate [Left Radial] 101 H Respiratory Rate 19 Blood Pressure 108/59 L 95/51 L 106/50 L Blood Pressure [Right Arm] 106/50 L Blood Pressure Mean 75 65 63 Blood Pressure Mean [Right Arm] 68 Blood Pressure Source [Right Arm] Automatic Cuff Blood Pressure Position [Right Arm] Supine 02 Sat by Pulse Oximetry 97 95 96 Oxygen Delivery Method Nasal Cannula Oxygen Flow Rate (LPM) 2 08/25/21 12:09 08/25/21 12:16 Temperature 98.4 F Temperature Source Oral Pulse Rate 102 H Pulse Rate [Left Radial] Respiratory Rate 18 Blood Pressure 106/50 L 106/50 L Blood Pressure [Right Arm] Blood Pressure Mean Blood Pressure Mean [Right Arm] Blood Pressure Source [Right Arm] Blood Pressure Position [Right Arm] 02 Sat by Pulse Oximetry Oxygen Delivery Method Room Air Oxygen Flow Rate (LPM) - Lab Data Lab Results 08/25/21 08:50: WBC 11.0 H, RBC 3.37 L, Hgb 11.1 L, Hct 34.0 L, MCV 101.0 H, MCH 33.1 H, MCHC 32.8, RDW 13.2, Plt Count 324, MPV 8.3, Neut % (Auto) 64.0, Lymph % (Auto) 29.0, [place] % (Auto) 5.5, Eos % (Auto) 0.7, Baso % (Auto) 0.8, Neut # (Auto) 7.1, Lymph # (Auto) 3.2, [place] # (Auto) 0.6, Eos # (Auto) 0.1, Baso # (Auto) 0.1 08/25/21 08:50: Sodium 136, Potassium 4.6, Chloride 103, Carbon Dioxide 24, Anion Gap 13.6, BUN 36 H, Creatinine 0.80, Estimated Creat Clear 96, Estimated GFR 97, Est GFR ( Amer) 117, Glucose 349 H, Calcium 8.6, Total Bilirubin 0.4, AST 21, ALT 26, Alkaline Phosphatase 46, Troponin I < 0.01, Total Protein 6.2 L, Albumin 3.6, Globulin 2.6, Albumin/Globulin Ratio 1.4 08/25/21 08:50: PT 17.7 H, INR 1.62 H, APTT 25.6 08/25/21 08:50: NT-Pro-B Natriuret Pep 25.8 08/25/21 09:28: SARS-CoV-2 (PCR) Not detected, Influenza A Untype (PCR) Not detected, Influenza Type B (PCR) Not detected Result diagrams: 08/25/21 16:55 08/25/21 08:50 Orders (Tests/Meds): ED MEDICATIONS Generic Name Dose Route Start Last Admin Trade Name Yovannyq PRN Reason Stop Dose Admin Acetaminophen 650 mg 08/25/21 14:24 Acetaminophen 325mg Tab PO 09/24/21 10:54 Q4HP PRN Fever or Mild Pain Insulin Human Lispro 0 unit 08/25/21 21:30 Humalog 100 Units/Ml 3ml Vial (Ssi) SQ 09/24/21 21:29 ACHS HAMLET Protocol Pantoprazole Sodium 40 mg 08/25/21 21:00 08/25/21 20:21 Pantoprazole 40mg Vial IV 09/24/21 12:59 40 mg BID HAMLET Administration Sodium Chloride 10 ml 08/25/21 14:24 Sodium Chloride 0.9% 10ml Vial IV 09/24/21 12:57 NEEDED PRN dilute protonix Discontinued Medications Generic Name Dose Route Start Last Admin Trade Name Freq PRN Reason Stop Dose Admin Acetaminophen 650 mg 08/25/21 10:55 Acetaminophen 3
[2021-08-25 09:08] LABS: Basophils # 0.1 K/mm3 (0-0.2); Basophils % 0.8 % (0.1-2.0); Chloride 103 mmol/L (98-107); Eosinophils # 0.1 K/mm3 (0.0-0.4); Eosinophils % 0.7 % (0.1-12.0); Hemoglobin 11.1 g/dL (14.1-18.0); Lymphocytes # 3.2 K/mm3 (0.7-4.5); Mean Corpuscular HGB Conc 32.8 g/dL (31.8-35.4); Mean Corpuscular Hemoglobin 33.1 pg (27.0-31.2); Mean Platelet Volume 8.3 fl (7.4-10.4); Monocytes # 0.6 K/mm3 (0.1-1.0); Monocytes % 5.5 % (1.7-9.3); Neutrophils # 7.1 K/mm3 (1.8-7.8); Platelet Count 324 K/mm3 (142-424); Potassium 4.6 mmoL/L (3.5-5.1); Red Blood Count 3.37 M/mm3 (4.60-6.20); Red Cell Distribution Width 13.2 % (11.5-17.5); Sodium 136 mmol/L (136-145)
--- NOTE | 2021-08-25 09:08 | ECG_ITS ---
APPROVED REPORT Exam: Resting ECG HR:103 bpm ECG Measurements Heart Rate 103 AXES WV 124 P -5 QRSd 97 QRS 22 QT 349 T -28 QTc 409 Conclusion SINUS TACHYCARDIA ABNORMAL ECG UNCONFIRMED REPORT Electronically signed by : Yefri Mchugh MD 08/26/2021 14:06:49
[2021-08-25 09:11] LABS: Alanine Aminotransferase 26 U/L (12-78); Albumin Level 3.6 g/dl (3.5-5.0); Albumin/Globulin Ratio 1.4 (1.1-1.8); Alkaline Phosphatase 46 U/L (38-126); Anion Gap 13.6 mEq/L (5-15); Aspartate Amino Transferase 21 U/L (17-59); Bilirubin,Total 0.4 mg/dl (0.2-1.3); Blood Urea Nitrogen 36 mg/dl (9-20); Carbon Dioxide 24 mmol/L (22.0-30.0); Creatinine Clearance Estimated 96 mL/min (50-200); Estimated Glomerular Filt Rate 97 ml/min (>60); GFR (African American) 117 ML/MIN (>60); Globulin 2.6 g/dL (1.3-3.2); Total Protein,Serum 6.2 g/dl (6.3-8.2)
[2021-08-25 09:12] LABS: Calcium 8.6 mg/dl (8.4-10.2); Glucose 349 mg/dl (74-100)
[2021-08-25 09:15] LABS: Activated Partial Thrombo Time 25.6 seconds (22.8-30.6); INR 1.62 (0.9-1.1); Prothrombin Time 17.7 seconds (10.1-12.5)
--- NOTE | 2021-08-25 09:21 | PC.NURSE ---
09:21 MD at bedside.
--- NOTE | 2021-08-25 09:24 | PC.NURSE ---
09:24: Radiology at bedside
[2021-08-25 09:27] LABS: Troponin I < 0.01 ng/ml (0.00-0.034)
--- NOTE | 2021-08-25 09:30 | PC.NURSE ---
09:30 Rad techs taking patient for CT.
[2021-08-25 09:40] LABS: Coronavirus 19, PCR Not Detected (NotDetected); Influenza A, PCR Not Detected (NotDetected); Influenza B, PCR Not Detected (NotDetected)
[2021-08-25 09:43] LABS: NT Pro Brain Natriuretic Pep. 25.8 pg/mL (0-125)
--- NOTE | 2021-08-25 10:52 | PC.NURSE ---
speaking with Dr. Mchugh
--- NOTE | 2021-08-25 11:48 | PC.NURSE ---
11:50; Patient at bedside eating ice chips; no other needs at this time.
--- NOTE | 2021-08-25 11:56 | PC.NURSE ---
Report called to Hilda AVENDANO
--- NOTE | 2021-08-25 13:00 | HMH.HP ---
*Admission Date: 08/25/21 *Chief complaint: Hematemesis/melena *History of present illness: 66-year-old white male with chronic HIV, currently well controlled on protease inhibitors who has had a fairly complex medical history over the past couple of months. He had chronic urinary incontinence and recently, in July 2021 had an automatic urinary bladder stimulator placed at [facility]. He has had an indwelling Gooden catheter for several months, but his most recent trial of stimulator function was not successful and he has continued the indwelling catheter. He came to the hospital here last week because of shortness of air after being discharged from the stimulator placement procedure at [facility], and was found to have pulmonary embolism. Appropriately worked up and treated, discharged on Xarelto 15 mg twice daily which she has been compliant with. Yesterday evening he noticed black, melanotic stools, felt significant heartburn and nausea-Dr. Bennett has placed him on a proton pump inhibitor at home over the past several days, but in spite of this he had heartburn, nausea and then this morning threw up dark coffee-ground/bloody material. Came to the emergency department. Found to be hemodynamically stable with no significant decline in hemoglobin but given his issues with vomiting, bleeding and currently exposure to anticoagulation therapy was admitted for further evaluation, IV fluids, following serial hemoglobins and surgery consultation. [facility] History I have reviewed the patient's past medical history: Yes Medical History: Reports:: Cancer (prostate), Deep Vein Thrombosis, Diabetes Mellitus Type 2, Hyperlipidemia, Hypertension Denies:: Diabetes Mellitus Type 1, Internal Pacemaker, Lung Disease, MRSA, Seizures *Have you ever received a pneumonia vaccine?: Yes (2012) *Have you received a flu vaccine this season?: No Other Medical History: Reports: Arthritis, HIV. Denies: Blood Transfusion Reaction Other Surgeries: Yes: Colonoscopy, Hernia Repair, Other (Prostatectomy). No: Pacemaker Amputation: No Fractures: No - *Social History Last grade of school completed: High school graduate Smoking Status: Never smoker Tobacco Type: cigarettes Alcohol Intake: current Alcohol Intake Frequency:: a few times a month Substance Use Type: denies use *Occupational Status:: employed Housing: house Household Members: family *Travel in the last 8 weeks: None Family Hx:: Cancer, Diabetes, Heart Attack, Hypertension, Kidney Disease, Stroke Review of Systems - Review of Systems Review of systems:: pertinent systems reviewed and negative unless documented below - *Neurologic Reports unsteadiness Meds Home Medications Medication Instructions Recorded Confirmed Type Atorvastatin Calcium [Lipitor 10mg 10 mg PO DAILY 01/27/18 08/25/21 History Tab] Elviteg/Flora/Emtric/Tenofo Ala 1 each PO DAILY 01/27/18 08/25/21 History [Genvoya Tablet] Fenofibrate [Fenoglide] 145 mg PO DAILY 01/27/18 08/25/21 History Sitagliptin Phosphate [Januvia 50 mg PO DAILY 01/27/18 08/25/21 History 50mg Tablet] Liraglutide [Victoza 3-Rogelio] 1.2 mg SQ DAILY 08/10/21 08/25/21 History cefUROXime axetiL [Ceftin 500mg 500 mg PO BID 08/10/21 08/25/21 History Tab (GEQ)] glipiZIDE [Glipizide] 10 mg PO DAILY 08/10/21 08/25/21 History Rivaroxaban [Xarelto 15mg tablet] 15 mg PO BIDWMEAL 08/25/21 08/25/21 History Allergies Allergy/AdvReac Type Severity Reaction Status Date / Time No Known Allergies Allergy Verified 07/17/21 14:34 Exam Vital signs and Labs for Last 24 Hours: Temp Pulse Resp BP Pulse Ox 98.4 F 102 H 18 106/50 L 96 08/25/21 12:16 08/25/21 12:16 08/25/21 12:16 08/25/21 12:16 08/25/21 12:00 Laboratory Results - last 24 hr 08/25/21 08:50: WBC 11.0 H, RBC 3.37 L, Hgb 11.1 L, Hct 34.0 L, MCV 101.0 H, MCH 33.1 H, MCHC 32.8, RDW 13.2, Plt Count 324, MPV 8.3, Neut % (Auto) 64.0, Lymph % (Auto) 29.0, [place] %
--- NOTE | 2021-08-25 13:08 | HMH.GSCON ---
*Admission Date: 08/25/21 *Reason for consult:: GI bleed, needs endoscopy *History of present illness: Patient is a 66-year old white male with history of prostate cancer, diabetes, DVT/PE, HIV who had undergone relatively recent surgery for artificial urinary sphincter implantation on 07/30/2021. He had been recently admitted from 08/10/2021 until 08/14/2021 with cough and shortness of breath. He was diagnosed with multiple bilateral pulmonary emboli and DVT with right heart strain. He was initially placed on a heparin drip. He ultimately was able to be discharged on pantoprazole, Reglan, and Xarelto. He does have a history of GERD type symptoms and during that hospitalization CT scan revealed findings suggestive of possible esophagitis. Patient presented to the emergency department today with some progressive shortness of air and near syncope. He did have a melenic stool yesterday. He had an episode of hematemesis characterized as vomiting of coffee-ground bloody material. Evaluation in the emergency department revealed hemoglobin 11 with hematocrit of 34, BUN 36 with creatinine of 0.8. INR 1.62. He was admitted for inpatient management and surgical consultation was obtained. Review of Systems - Review of Systems Review of systems:: pertinent systems reviewed and negative unless documented below - *Neurologic Reports unsteadiness [facility] History I have reviewed the patient's past medical history: Yes Medical History: Reports:: Cancer (prostate), Deep Vein Thrombosis, Diabetes Mellitus Type 2, Hyperlipidemia, Hypertension Denies:: Diabetes Mellitus Type 1, Internal Pacemaker, Lung Disease, MRSA, Seizures *Have you ever received a pneumonia vaccine?: Yes (2012) *Have you received a flu vaccine this season?: No Other Medical History: Reports: Arthritis, HIV. Denies: Blood Transfusion Reaction Other Surgeries: Yes: Colonoscopy, Hernia Repair, Other (Prostatectomy). No: Pacemaker Amputation: No Fractures: No - *Social History Last grade of school completed: High school graduate Smoking Status: Never smoker Tobacco Type: cigarettes Alcohol Intake: current Alcohol Intake Frequency:: a few times a month Substance Use Type: denies use *Occupational Status:: employed Housing: house Household Members: family *Travel in the last 8 weeks: None Family Hx:: Cancer, Diabetes, Heart Attack, Hypertension, Kidney Disease, Stroke Meds Home Medications Medication Instructions Recorded Confirmed Type Atorvastatin Calcium [Lipitor 10mg 10 mg PO DAILY 01/27/18 08/25/21 History Tab] Elviteg/Flora/Emtric/Tenofo Ala 1 each PO DAILY 01/27/18 08/25/21 History [Genvoya Tablet] Fenofibrate [Fenoglide] 145 mg PO DAILY 01/27/18 08/25/21 History Sitagliptin Phosphate [Januvia 50 mg PO DAILY 01/27/18 08/25/21 History 50mg Tablet] Liraglutide [Victoza 3-Rogelio] 1.2 mg SQ DAILY 08/10/21 08/25/21 History cefUROXime axetiL [Ceftin 500mg 500 mg PO BID 08/10/21 08/25/21 History Tab (GEQ)] glipiZIDE [Glipizide] 10 mg PO DAILY 08/10/21 08/25/21 History Rivaroxaban [Xarelto 15mg tablet] 15 mg PO BIDWMEAL 08/25/21 08/25/21 History Allergies Allergy/AdvReac Type Severity Reaction Status Date / Time No Known Allergies Allergy Verified 07/17/21 14:34 Exam Vital signs and Labs for Last 24 Hours: Temp Pulse Resp BP Pulse Ox 98.4 F 102 H 18 106/50 L 96 08/25/21 12:16 08/25/21 12:16 08/25/21 12:16 08/25/21 12:16 08/25/21 12:00 Laboratory Results - last 24 hr 08/25/21 08:50: WBC 11.0 H, RBC 3.37 L, Hgb 11.1 L, Hct 34.0 L, MCV 101.0 H, MCH 33.1 H, MCHC 32.8, RDW 13.2, Plt Count 324, MPV 8.3, Neut % (Auto) 64.0, Lymph % (Auto) 29.0, [place] % (Auto) 5.5, Eos % (Auto) 0.7, Baso % (Auto) 0.8, Neut # (Auto) 7.1, Lymph # (Auto) 3.2, [place] # (Auto) 0.6, Eos # (Auto) 0.1, Baso # (Auto) 0.1 08/25/21 08:50: Sodium 136, Potassium 4.6, Chloride 103, Carbon Dioxide 24, Anion Gap 13.6, BUN 36 H, Creatinine 0.80, Estimated Creat Clear 96, Estim
[2021-08-25 17:16] LABS: Basophils # 0.1 K/mm3 (0-0.2); Basophils % 0.4 % (0.1-2.0); Eosinophils % 0.1 % (0.1-12.0); Hematocrit 27.2 % (42.0-52.0); Lymphocytes # 3.1 K/mm3 (0.7-4.5); Lymphocytes % 21.1 % (10-50); Mean Corpuscular HGB Conc 33.5 g/dL (31.8-35.4); Mean Corpuscular Hemoglobin 32.7 pg (27.0-31.2); Mean Corpuscular Volume 97.8 fl (80-94); Mean Platelet Volume 8.5 fl (7.4-10.4); Monocytes # 0.8 K/mm3 (0.1-1.0); Monocytes % 5.2 % (1.7-9.3); Neutrophils # 10.9 K/mm3 (1.8-7.8); Neutrophils % 73.2 % (37.0-80.0); Platelet Count 297 K/mm3 (142-424); Red Blood Count 2.78 M/mm3 (4.60-6.20); Red Cell Distribution Width 13.3 % (11.5-17.5); White Blood Count 14.9 K/mm3 (4.8-10.8)
[2021-08-25 17:24] LABS: Hemoglobin 9.1 g/dL (14.1-18.0)
--- NOTE | 2021-08-25 19:19 | PC.NURSE ---
Pt. resting in bed. Vitals have been stable this shift. Pt. is scheduled for EGD with Dr. Kenny in the morning. Pt is aggreable and consent was signed. Pt. has had no complaints this shift. Detailed report give to Dejuan Payne RN.
[2021-08-25 22:22] LABS: Basophils # 0.1 K/mm3 (0-0.2); Basophils % 0.8 % (0.1-2.0); Eosinophils % 0.1 % (0.1-12.0); Hemoglobin 8.3 g/dL (14.1-18.0); Lymphocytes # 3.8 K/mm3 (0.7-4.5); Lymphocytes % 24.7 % (10-50); Mean Corpuscular HGB Conc 32.2 g/dL (31.8-35.4); Mean Corpuscular Hemoglobin 32.6 pg (27.0-31.2); Mean Corpuscular Volume 101.2 fl (80-94); Mean Platelet Volume 8.1 fl (7.4-10.4); Monocytes # 0.9 K/mm3 (0.1-1.0); Monocytes % 5.6 % (1.7-9.3); Neutrophils # 10.7 K/mm3 (1.8-7.8); Neutrophils % 68.8 % (37.0-80.0); Platelet Count 289 K/mm3 (142-424); Red Blood Count 2.55 M/mm3 (4.60-6.20); Red Cell Distribution Width 13.5 % (11.5-17.5); White Blood Count 15.6 K/mm3 (4.8-10.8)
[2021-08-25 22:23] LABS: Hematocrit 25.8 % (42.0-52.0)
[2021-08-25 22:25] LABS: MANUAL DIFFERENTIAL MANUAL DIFFERENTIAL (MANUAL DIFF)
[2021-08-25 22:57] LABS: Anisocytosis 1+; Lymphocytes % 10 % (10-50); Monocytes % 5 % (2-9); Neutrophils % 85 % (42-76); Platelet Estimate Normal; Total Cells Counted 100
--- NOTE | 2021-08-25 23:45 | PC.NURSE ---
took over care of this patient at 0482
[2021-08-26] VITALS (16 sets, daily range): BP systolic 109–153; BP diastolic 52–80; PULSE 82–103; RESP 16–20; TEMP 36.2–37.1; O2SAT 93–99; BMI 33.7; BMI 33.5
[2021-08-26 06:17] LABS: POC Glucose,Bedside 383 (70-110)
[2021-08-26 07:31] LABS: Basophils # 0.1 K/mm3 (0-0.2); Basophils % 0.4 % (0.1-2.0); Eosinophils # 0.1 K/mm3 (0.0-0.4); Eosinophils % 0.4 % (0.1-12.0); Hemoglobin 8.1 g/dL (14.1-18.0); Lymphocytes # 3.7 K/mm3 (0.7-4.5); Lymphocytes % 28.9 % (10-50); Mean Corpuscular HGB Conc 33.6 g/dL (31.8-35.4); Mean Corpuscular Hemoglobin 33.2 pg (27.0-31.2); Mean Corpuscular Volume 98.8 fl (80-94); Mean Platelet Volume 8.2 fl (7.4-10.4); Monocytes # 0.7 K/mm3 (0.1-1.0); Monocytes % 5.8 % (1.7-9.3); Neutrophils # 8.2 K/mm3 (1.8-7.8); Neutrophils % 64.5 % (37.0-80.0); Platelet Count 262 K/mm3 (142-424); Red Blood Count 2.43 M/mm3 (4.60-6.20); Red Cell Distribution Width 13.5 % (11.5-17.5); White Blood Count 12.7 K/mm3 (4.8-10.8)
--- NOTE | 2021-08-26 07:38 | HMH.GSPN ---
Subjective Narrative: Patient states he had some nausea. No hematemesis. Progress Note: A&P (1) GI bleed Status: Acute Assessment and plan: Hemoglobin 11.1 on admission, 8.3 yesterday evening. EGD this morning. (2) Diabetes Status: Acute (3) Esophagitis Status: Acute (4) HIV (human immunodeficiency virus infection) Status: Acute (5) HLD (hyperlipidemia) Status: Acute (6) HTN (hypertension) Status: Acute (7) Pulmonary emboli Status: Acute Exam Vital signs and Labs for Last 24 Hours: Temp Pulse Resp BP Pulse Ox 98.8 F 86 18 132/72 98 08/26/21 04:00 08/26/21 04:00 08/26/21 04:00 08/26/21 04:00 08/26/21 04:00 Laboratory Results - last 24 hr 08/25/21 08:50: WBC 11.0 H, RBC 3.37 L, Hgb 11.1 L, Hct 34.0 L, MCV 101.0 H, MCH 33.1 H, MCHC 32.8, RDW 13.2, Plt Count 324, MPV 8.3, Neut % (Auto) 64.0, Lymph % (Auto) 29.0, [place] % (Auto) 5.5, Eos % (Auto) 0.7, Baso % (Auto) 0.8, Neut # (Auto) 7.1, Lymph # (Auto) 3.2, [place] # (Auto) 0.6, Eos # (Auto) 0.1, Baso # (Auto) 0.1 08/25/21 08:50: Sodium 136, Potassium 4.6, Chloride 103, Carbon Dioxide 24, Anion Gap 13.6, BUN 36 H, Creatinine 0.80, Estimated Creat Clear 96, Estimated GFR 97, Est GFR ( Amer) 117, Glucose 349 H, Calcium 8.6, Total Bilirubin 0.4, AST 21, ALT 26, Alkaline Phosphatase 46, Troponin I < 0.01, Total Protein 6.2 L, Albumin 3.6, Globulin 2.6, Albumin/Globulin Ratio 1.4 08/25/21 08:50: PT 17.7 H, INR 1.62 H, APTT 25.6 08/25/21 08:50: NT-Pro-B Natriuret Pep 25.8 08/25/21 09:28: SARS-CoV-2 (PCR) Not detected, Influenza A Untype (PCR) Not detected, Influenza Type B (PCR) Not detected 08/25/21 16:55: WBC 14.9 H D, RBC 2.78 L, Hgb 9.1 L D, Hct 27.2 L, MCV 97.8 H, MCH 32.7 H, MCHC 33.5, RDW 13.3, Plt Count 297, MPV 8.5, Neut % (Auto) 73.2, Lymph % (Auto) 21.1, [place] % (Auto) 5.2, Eos % (Auto) 0.1, Baso % (Auto) 0.4, Neut # (Auto) 10.9 H, Lymph # (Auto) 3.1, [place] # (Auto) 0.8, Eos # (Auto) 0.0, Baso # (Auto) 0.1 08/25/21 20:20: POC Glucose 383 H* 08/25/21 22:15: WBC 15.6 H, RBC 2.55 L, Hgb 8.3 L, Hct 25.8 L, MCV 101.2 H, MCH 32.6 H, MCHC 32.2, RDW 13.5, Plt Count 289, MPV 8.1, Neut % (Auto) 68.8, Lymph % (Auto) 24.7, [place] % (Auto) 5.6, Eos % (Auto) 0.1, Baso % (Auto) 0.8, Neut # (Auto) 10.7 H, Lymph # (Auto) 3.8, [place] # (Auto) 0.9, Eos # (Auto) 0.0, Baso # (Auto) 0.1, Total Counted 100, Neutrophils % (Manual) 85 H, Lymphocytes % (Manual) 10, Monocytes % (Manual) 5, Platelet Estimate Normal, Anisocytosis 1+ I & O for Last 24 hours: Intake & Output 08/23/21 08/24/21 08/25/21 08/26/21 11:59 11:59 11:59 11:59 Intake Total 600 / 600 Output Total 3700 / 3700 Balance -3100 / -3100 Weight 203 lb 197 lb 4.8 oz - *Routine Abdominal Exam Present: soft
[2021-08-26 07:45] LABS: Blood Urea Nitrogen 32 mg/dl (9-20); Calcium 8.4 mg/dl (8.4-10.2); Carbon Dioxide 26 mmol/L (22.0-30.0); Chloride 101 mmol/L (98-107); Creatinine Clearance Estimated 93 mL/min (50-200); Estimated Glomerular Filt Rate 113 ml/min (>60); GFR (African American) 137 ML/MIN (>60); Glucose 241 mg/dl (74-100); Sodium 132 mmol/L (136-145)
[2021-08-26 07:46] LABS: INR 1.16 (0.9-1.1)
--- NOTE | 2021-08-26 07:58 | PC.NURSE ---
pt has rested well this shift, catheter remains in place, no complaints of pain this shift, has remained on 2L NC with O2 sats 96-98%
--- NOTE | 2021-08-26 08:26 | HMH.SCOPE ---
- Procedure: Date: 08/26/21 Patient Date of :: 1955 Procedure Performed:: Esophagogastroduodenoscopy with intervention for hemostasis Indications:: Patient is a 66-year old white male with history of prostate cancer, diabetes, DVT/PE, HIV who had undergone relatively recent surgery for artificial urinary sphincter implantation on 07/30/2021. He had been recently admitted from 08/10/2021 until 08/14/2021 with cough and shortness of breath. He was diagnosed with multiple bilateral pulmonary emboli and DVT with right heart strain. He was initially placed on a heparin drip. He ultimately was able to be discharged on pantoprazole, Reglan, and Xarelto. He does have a history of GERD type symptoms and during that hospitalization CT scan revealed findings suggestive of possible esophagitis. Patient presented to the emergency department today with some progressive shortness of air and near syncope. He did have a melenic stool on 08/24/21. He had an episode of hematemesis characterized as vomiting of coffee-ground bloody material on 08/25/21. Evaluation in the emergency department revealed hemoglobin 11 with hematocrit of 34, BUN 36 with creatinine of 0.8. INR 1.62. He was admitted for inpatient management and surgical consultation was obtained. Plan was made for endoscopy. Hemoglobin 11.1 on admission on 08/25/2021. it was 8.3 later that evening. Performing Provider:: Asif Kenny MD Referring Provider:: Yefri Mchugh MD Sedation:: MAC sedation Procedure:: Consent was obtained and patient was taken to endoscopy procedure room. He was positioned in lateral decubitus position. Adequate intravenous sedation was achieved with anesthesia titration of propofol. Olympus endoscope was inserted via the oropharynx. Esophagus was cannulated and the endoscope was advanced. Gastroesophageal junction was encountered at approximately 40 cm from the incisors. There was an adherent clot at the gastroesophageal junction with no evidence of any active bleeding at that time. However with minimal manipulation the clot was dislodged and there was some oozing from the site. This appeared to be consistent with significant erosive esophagitis at the gastroesophageal junction and less likely a Bree-Collins tear. Endoscope was able to be advanced into the stomach. Stomach was cannulated and insufflated. Retroflexion revealed tiny hiatal hernia. Overall stomach lining appeared unremarkable. Pylorus was traversed and for second and third portion of the duodenum were unremarkable. The endoscope was withdrawn into the distal esophagus. Irrigation was performed to clear any fresh blood. Using the gold probe epinephrine was injected at the site of bleeding around the edges. Total 3 cc of epinephrine was injected submucosally. Patient did have some expected tachycardia during this portion of the procedure. It appears as though this resulted in good hemostasis. However to ensure hemostasis a 15 to 18 mm pneumatic balloon dilator was inserted. This was inflated initially to 15 mm, then 16.5 mm, then 18 mm. It was held in position for at least 2 minutes. It was then deflated. There is no evidence of any bleeding at this time. There was significant erosion at the gastroesophageal junction. There was no obvious visible vessel. Consideration was being given for possible deployment of Hemoclip but there was no clear defined vessel or point that could be easily clipped and it was felt that possible deployment of Hemoclip may reinitiate active bleeding. Stomach was desufflated and the endoscope was withdrawn. Findings:: Erosive esophagitis at gastroesophageal junction with adherent clot Less likely Bree-Collins tear Hemostasis achieved with injection epinephrine submucosally and tamponade with balloon dilator Recommendations:: Recommend continuation of high-dose proton pump inhibitors. I would limit to a clear liquid diet for now. Continue to monitor
--- NOTE | 2021-08-26 08:27 | P.PN_ITS ---
[facility] Anesthesia Checklist - Patient Identification Patient Identification: Arm Band - Structural Data Admitted From: Inpatient Planned Operative Procedure/s: egd Consent for Planned Operative Procedure(s) Verified: Yes Verified Documents: Surgical Consent, History and Physical - NPO Status Verified Time NPO: 00:00 - Additional verifications Anesthesia Reactions: No Hx Blood Transfusions: No Blood Transfusion Reaction: No - Airway Assessment C-Spine Mobility Assessed: Yes (mp2) TMJ Mobility Assessed: Yes Dentition: Good Dentition - Neurological Assessment Level of Consciousness: Awake, Alert - Anesthesia Plan Anesthesia Risk discussed: Yes Anesthesia Plan: Verified ASA Class: III Anesthesia Type: MAC [facility] History I have reviewed the patient's past medical history: Yes Medical History: Reports:: Cancer (prostate), Deep Vein Thrombosis, Diabetes Mellitus Type 2, Hyperlipidemia, Hypertension Denies:: Diabetes Mellitus Type 1, Internal Pacemaker, Lung Disease, MRSA, Seizures *Have you ever received a pneumonia vaccine?: Yes (2012) *Have you received a flu vaccine this season?: No Other Medical History: Reports: Arthritis, HIV. Denies: Blood Transfusion Reaction Anesthesia experience/problems:: nac Other Surgeries: Yes: Colonoscopy, Hernia Repair, Other (Prostatectomy). No: Pacemaker Amputation: No Fractures: No - *Social History Last grade of school completed: High school graduate Smoking Status: Never smoker Tobacco Type: cigarettes Alcohol Intake: current Alcohol Intake Frequency:: a few times a month Substance Use Type: denies use *Occupational Status:: employed Housing: house Household Members: family *Travel in the last 8 weeks: None Family Hx:: Cancer, Diabetes, Heart Attack, Hypertension, Kidney Disease, Stroke
--- NOTE | 2021-08-26 08:58 | SUR.PHASEII ---
[id number]-detailed report called to ROMANA Reynoso [id number]-pt transported to 2nd floor room 208 via hospital bed w/samreen rails up per CITLALI Varghese and ROMANA Wilkes and left in care of ROMANA Reynoso with bed locked in lowest position, vss, pt stable, Dr. Bennett at bedside at this time
--- NOTE | 2021-08-26 09:04 | HMH.ACPN2 ---
Internal Medicine - PN: Subj *Date: 08/26/21 *Time: 09:04 Interval history: Patient has just returned from EGD where he has been found to have esophagitis with evidence of recent bleeding but no active bleeding. Patient had epinephrine injection and balloon tamponade. H&H has declined since admission. Patient denies abdominal pain this morning Exam Vital signs and Labs for Last 24 Hours: Temp Pulse Resp BP Pulse Ox 97.2 F L 101 H 20 123/60 97 08/26/21 08:44 08/26/21 08:44 08/26/21 08:44 08/26/21 08:44 08/26/21 08:44 Laboratory Results - last 24 hr 08/25/21 08:50: WBC 11.0 H, RBC 3.37 L, Hgb 11.1 L, Hct 34.0 L, MCV 101.0 H, MCH 33.1 H, MCHC 32.8, RDW 13.2, Plt Count 324, MPV 8.3, Neut % (Auto) 64.0, Lymph % (Auto) 29.0, [place] % (Auto) 5.5, Eos % (Auto) 0.7, Baso % (Auto) 0.8, Neut # (Auto) 7.1, Lymph # (Auto) 3.2, [place] # (Auto) 0.6, Eos # (Auto) 0.1, Baso # (Auto) 0.1 08/25/21 08:50: Sodium 136, Potassium 4.6, Chloride 103, Carbon Dioxide 24, Anion Gap 13.6, BUN 36 H, Creatinine 0.80, Estimated Creat Clear 96, Estimated GFR 97, Est GFR ( Amer) 117, Glucose 349 H, Calcium 8.6, Total Bilirubin 0.4, AST 21, ALT 26, Alkaline Phosphatase 46, Troponin I < 0.01, Total Protein 6.2 L, Albumin 3.6, Globulin 2.6, Albumin/Globulin Ratio 1.4 08/25/21 08:50: PT 17.7 H, INR 1.62 H, APTT 25.6 08/25/21 08:50: NT-Pro-B Natriuret Pep 25.8 08/25/21 09:28: SARS-CoV-2 (PCR) Not detected, Influenza A Untype (PCR) Not detected, Influenza Type B (PCR) Not detected 08/25/21 16:55: WBC 14.9 H D, RBC 2.78 L, Hgb 9.1 L D, Hct 27.2 L, MCV 97.8 H, MCH 32.7 H, MCHC 33.5, RDW 13.3, Plt Count 297, MPV 8.5, Neut % (Auto) 73.2, Lymph % (Auto) 21.1, [place] % (Auto) 5.2, Eos % (Auto) 0.1, Baso % (Auto) 0.4, Neut # (Auto) 10.9 H, Lymph # (Auto) 3.1, [place] # (Auto) 0.8, Eos # (Auto) 0.0, Baso # (Auto) 0.1 08/25/21 20:20: POC Glucose 383 H* 08/25/21 22:15: WBC 15.6 H, RBC 2.55 L, Hgb 8.3 L, Hct 25.8 L, MCV 101.2 H, MCH 32.6 H, MCHC 32.2, RDW 13.5, Plt Count 289, MPV 8.1, Neut % (Auto) 68.8, Lymph % (Auto) 24.7, [place] % (Auto) 5.6, Eos % (Auto) 0.1, Baso % (Auto) 0.8, Neut # (Auto) 10.7 H, Lymph # (Auto) 3.8, [place] # (Auto) 0.9, Eos # (Auto) 0.0, Baso # (Auto) 0.1, Total Counted 100, Neutrophils % (Manual) 85 H, Lymphocytes % (Manual) 10, Monocytes % (Manual) 5, Platelet Estimate Normal, Anisocytosis 1+ 08/26/21 07:00: WBC 12.7 H, RBC 2.43 L, Hgb 8.1 L, Hct 24.0 L, MCV 98.8 H, MCH 33.2 H, MCHC 33.6, RDW 13.5, Plt Count 262, MPV 8.2, Neut % (Auto) 64.5, Lymph % (Auto) 28.9, [place] % (Auto) 5.8, Eos % (Auto) 0.4, Baso % (Auto) 0.4, Neut # (Auto) 8.2 H, Lymph # (Auto) 3.7, [place] # (Auto) 0.7, Eos # (Auto) 0.1, Baso # (Auto) 0.1 08/26/21 07:00: PT 13.0 H, INR 1.16 H 08/26/21 07:00: Sodium 132 L, Potassium 4.0, Chloride 101, Carbon Dioxide 26, Anion Gap 9.0, BUN 32 H, Creatinine 0.70, Estimated Creat Clear 93, Estimated GFR 113, Est GFR ( Amer) 137, Glucose 241 H D, Calcium 8.4 I & O for Last 24 hours: Intake & Output 08/23/21 08/24/21 08/25/21 08/26/21 11:59 11:59 11:59 11:59 Intake Total 600 / 600 Output Total 3700 / 3700 Balance -3100 / -3100 Weight 203 lb 197 lb 4.8 oz - Constitutional no acute distress - *Routine Respiratory Exam Present: CTA bilaterally - *Routine Cardiovascular Exam Present: RRR - *Routine Abdominal Exam Present: soft, normoactive bowel sounds. Absent: tenderness Assessment and Plan (1) GI bleed Status: Acute Category: Medical Code(s): K92.2 - Gastrointestinal hemorrhage, unspecified (2) Diabetes Status: Acute Category: Medical Code(s): E11.9 - Type 2 diabetes mellitus without complications (3) Esophagitis Status: Acute Category: Medical Code(s): K20.90 - Esophagitis, unspecified without bleeding (4) HIV (human immunodeficiency virus infection) Status: Acute Category: Medical Code(s): B20 - Human immunodeficiency virus [HIV] disease (5) HLD (hyperlipidemia) Status: Acute Categ
[2021-08-26 11:53] LABS: POC Glucose,Bedside 334 (70-110)
--- NOTE | 2021-08-26 14:28 | P.CONPHA_ITS ---
[facility] Pharmacy VTE Monitoring - Patient Demographics Admission date: 08/25/21 Report Date: 08/26/21 Time: 14:28 Allergies/Adverse Reactions: Patient Allergies No Known Allergies Allergy (Verified 07/17/21 14:34) Height: 1.63 m Weight: 89.494 kg Patient Problems: Current Active Problems Pulmonary emboli (Acute) HTN (hypertension) (Acute) HLD (hyperlipidemia) (Acute) HIV (human immunodeficiency virus infection) (Acute) Diabetes (Acute) Esophagitis (Acute) GI bleed (Acute) - VTE Risk Labs: VTE Related Lab Results Hgb 8.1 g/dL (14.1-18.0) L 08/26/21 07:00 Hct 24.0 % (42.0-52.0) L 08/26/21 07:00 Plt Count 262 K/mm3 (142-424) 08/26/21 07:00 PT 13.0 seconds (10.1-12.5) H 08/26/21 07:00 INR 1.16 (0.9-1.1) H 08/26/21 07:00 APTT 25.6 seconds (22.8-30.6) 08/25/21 08:50 BUN 32 mg/dl (9-20) H 08/26/21 07:00 Creatinine 0.70 mg/dl (0.66-1.25) 08/26/21 07:00 Estimated Creat Clear 93 mL/min (50-200) 08/26/21 07:00 Was VTE Risk Assessment Performed: Yes VTE Risk Level: Moderate Risk - Prophylaxis VTE Prophylaxis Ordered?: Yes Types of VTE Prophylaxis: TEDS Knee High, Pharmacological Location of Applied Device: Bilateral Lower Extremeties Pharmacologic Type: Enoxaparin
[2021-08-26 14:32] LABS: Basophils % 0.4 % (0.1-2.0); Eosinophils # 0.1 K/mm3 (0.0-0.4); Eosinophils % 0.5 % (0.1-12.0); Hemoglobin 7.3 g/dL (14.1-18.0); Lymphocytes # 3.3 K/mm3 (0.7-4.5); Lymphocytes % 30.4 % (10-50); Mean Corpuscular HGB Conc 35.4 g/dL (31.8-35.4); Mean Corpuscular Hemoglobin 34.3 pg (27.0-31.2); Mean Corpuscular Volume 96.8 fl (80-94); Mean Platelet Volume 8.1 fl (7.4-10.4); Monocytes # 0.6 K/mm3 (0.1-1.0); Neutrophils # 6.7 K/mm3 (1.8-7.8); Neutrophils % 62.6 % (37.0-80.0); Platelet Count 242 K/mm3 (142-424); Red Blood Count 2.12 M/mm3 (4.60-6.20); Red Cell Distribution Width 13.8 % (11.5-17.5); White Blood Count 10.7 K/mm3 (4.8-10.8)
[2021-08-26 14:33] LABS: Hematocrit 20.5 % (42.0-52.0)
--- NOTE | 2021-08-26 14:43 | PC.NURSE ---
1432-Critical hct received from [facility] in lab. 1435- reported to MD Mchugh, classification analyst for MD Bennett. repeat H/H to be ordered in 6 hours. Orders received and carried out by this RN
--- NOTE | 2021-08-26 16:43 | HMH.PHAINT ---
MEDICATION RECONCILIATION COMPLETED ON PATIENT USING EXTERNAL FILL HISTORY FROM PHARMACY AND DISCHARGE SUMMARY FROM PREVIOUS ADMISSION. -AISHA BEAUCHAMPD
[2021-08-26 16:59] LABS: POC Glucose,Bedside 222 (70-110)
[2021-08-26 20:14] LABS: POC Glucose,Bedside 281 (70-110)
[2021-08-26 20:19] LABS: Hemoglobin 6.8 g/dL (14.1-18.0)
[2021-08-26 20:20] LABS: Hematocrit 19.9 % (42.0-52.0)
[2021-08-27] VITALS (16 sets, daily range): BP systolic 116–132; BP diastolic 45–64; PULSE 80–98; RESP 16–20; TEMP 36.6–37.6; O2SAT 90–99; BMI 33.6
--- NOTE | 2021-08-27 06:35 | PC.NURSE ---
21:16- Reported 6 hr H/H lab value to MD Mchugh, extension forester for MD Bennett of Hgb 6.8, Hct 19.9, new orders to transfuse 1 PRBC with no post H/H to wait till am labs. Transfused 1 unit, pt tolerated transfusion well all vital signs remained stable. Pt's mata is draining at bedside. Pt had no c/o of pain throughout the night.
[2021-08-27 06:57] LABS: POC Glucose,Bedside 148 (70-110)
--- NOTE | 2021-08-27 07:14 | P.PN_ITS ---
Subjective Narrative: Patient is without complaints. He did show decreased hemoglobin to 6.8 last night and was transfused 1 unit packed red blood cells. Follow-up labs pending. Denies symptoms consistent with clinical active bleeding such as melena or hematochezia. Progress Note: A&P (1) GI bleed Status: Acute (2) Diabetes Status: Acute (3) Esophagitis Status: Acute (4) HIV (human immunodeficiency virus infection) Status: Acute (5) HLD (hyperlipidemia) Status: Acute (6) HTN (hypertension) Status: Acute (7) Pulmonary emboli Status: Acute Assessment and Plan for All Diagnoses:: Check follow-up labs. Assess for appropriate response. I will go ahead and make him n.p.o. for right now for potential repeat EGD if indicated. However, decreased hemoglobin may be merely equilibration. Exam Vital signs and Labs for Last 24 Hours: Temp Pulse Resp BP Pulse Ox 99.2 F 90 18 130/45 L 97 08/27/21 05:20 08/27/21 05:20 08/27/21 05:20 08/27/21 05:20 08/27/21 05:20 Laboratory Results - last 24 hr 08/26/21 06:47: POC Glucose 281 H 08/26/21 07:00: WBC 12.7 H, RBC 2.43 L, Hgb 8.1 L, Hct 24.0 L, MCV 98.8 H, MCH 33.2 H, MCHC 33.6, RDW 13.5, Plt Count 262, MPV 8.2, Neut % (Auto) 64.5, Lymph % (Auto) 28.9, [place] % (Auto) 5.8, Eos % (Auto) 0.4, Baso % (Auto) 0.4, Neut # (Auto) 8.2 H, Lymph # (Auto) 3.7, [place] # (Auto) 0.7, Eos # (Auto) 0.1, Baso # (Auto) 0.1 08/26/21 07:00: PT 13.0 H, INR 1.16 H 08/26/21 07:00: Sodium 132 L, Potassium 4.0, Chloride 101, Carbon Dioxide 26, Anion Gap 9.0, BUN 32 H, Creatinine 0.70, Estimated Creat Clear 93, Estimated GFR 113, Est GFR ( Amer) 137, Glucose 241 H D, Calcium 8.4 08/26/21 11:40: POC Glucose 334 H* 08/26/21 14:10: WBC 10.7, RBC 2.12 L, Hgb 7.3 L, Hct 20.5 L*, MCV 96.8 H, MCH 34.3 H, MCHC 35.4, RDW 13.8, Plt Count 242, MPV 8.1, Neut % (Auto) 62.6, Lymph % (Auto) 30.4, [place] % (Auto) 6.0, Eos % (Auto) 0.5, Baso % (Auto) 0.4, Neut # (Auto) 6.7, Lymph # (Auto) 3.3, [place] # (Auto) 0.6, Eos # (Auto) 0.1, Baso # (Auto) 0.0 08/26/21 16:52: POC Glucose 222 H 08/26/21 20:10: Hgb 6.8 L*, Hct 19.9 L* 08/26/21 20:10: Blood Type Confirm A Positive 08/26/21 22:30: Blood Type A Positive, Antibody Screen Negative, Crossmatch (AHG) See Detail 08/27/21 05:26: POC Glucose 148 H I & O for Last 24 hours: Intake & Output 08/24/21 08/25/21 08/26/21 08/27/21 11:59 11:59 11:59 11:59 Intake Total 600 / 600 1570 / 1570 Output Total 3700 / 3700 1600 / 1600 Balance -3100 / -3100 -30 / -30 Weight 203 lb 197 lb 4.8 oz 196 lb 14.4 oz - *Routine Abdominal Exam Present: soft
[2021-08-27 07:16] LABS: Basophils # 0.1 K/mm3 (0-0.2); Basophils % 0.7 % (0.1-2.0); Eosinophils % 0.6 % (0.1-12.0); Lymphocytes # 2.6 K/mm3 (0.7-4.5); Mean Corpuscular HGB Conc 32.3 g/dL (31.8-35.4); Mean Corpuscular Hemoglobin 31.9 pg (27.0-31.2); Mean Platelet Volume 7.9 fl (7.4-10.4); Monocytes # 0.4 K/mm3 (0.1-1.0); Monocytes % 5.6 % (1.7-9.3); Neutrophils # 4.6 K/mm3 (1.8-7.8); Neutrophils % 59.1 % (37.0-80.0); Platelet Count 233 K/mm3 (142-424); Red Blood Count 2.42 M/mm3 (4.60-6.20); Red Cell Distribution Width 14.9 % (11.5-17.5); White Blood Count 7.8 K/mm3 (4.8-10.8)
--- NOTE | 2021-08-27 07:28 | HMH.ACPN2 ---
Internal Medicine - PN: Subj *Date: 08/27/21 *Time: 07:28 Interval history: Patient required transfusion of 1 unit of blood overnight. He denies nausea, vomiting. Patient has not had any further bowel movements. Exam Vital signs and Labs for Last 24 Hours: Temp Pulse Resp BP Pulse Ox 99.2 F 90 18 130/45 L 97 08/27/21 05:20 08/27/21 05:20 08/27/21 05:20 08/27/21 05:20 08/27/21 05:20 Laboratory Results - last 24 hr 08/26/21 06:47: POC Glucose 281 H 08/26/21 07:00: WBC 12.7 H, RBC 2.43 L, Hgb 8.1 L, Hct 24.0 L, MCV 98.8 H, MCH 33.2 H, MCHC 33.6, RDW 13.5, Plt Count 262, MPV 8.2, Neut % (Auto) 64.5, Lymph % (Auto) 28.9, [place] % (Auto) 5.8, Eos % (Auto) 0.4, Baso % (Auto) 0.4, Neut # (Auto) 8.2 H, Lymph # (Auto) 3.7, [place] # (Auto) 0.7, Eos # (Auto) 0.1, Baso # (Auto) 0.1 08/26/21 07:00: PT 13.0 H, INR 1.16 H 08/26/21 07:00: Sodium 132 L, Potassium 4.0, Chloride 101, Carbon Dioxide 26, Anion Gap 9.0, BUN 32 H, Creatinine 0.70, Estimated Creat Clear 93, Estimated GFR 113, Est GFR ( Amer) 137, Glucose 241 H D, Calcium 8.4 08/26/21 11:40: POC Glucose 334 H* 08/26/21 14:10: WBC 10.7, RBC 2.12 L, Hgb 7.3 L, Hct 20.5 L*, MCV 96.8 H, MCH 34.3 H, MCHC 35.4, RDW 13.8, Plt Count 242, MPV 8.1, Neut % (Auto) 62.6, Lymph % (Auto) 30.4, [place] % (Auto) 6.0, Eos % (Auto) 0.5, Baso % (Auto) 0.4, Neut # (Auto) 6.7, Lymph # (Auto) 3.3, [place] # (Auto) 0.6, Eos # (Auto) 0.1, Baso # (Auto) 0.0 08/26/21 16:52: POC Glucose 222 H 08/26/21 20:10: Hgb 6.8 L*, Hct 19.9 L* 08/26/21 20:10: Blood Type Confirm A Positive 08/26/21 22:30: Blood Type A Positive, Antibody Screen Negative, Crossmatch (AHG) See Detail 08/27/21 05:26: POC Glucose 148 H I & O for Last 24 hours: Intake & Output 08/24/21 08/25/21 08/26/21 08/27/21 11:59 11:59 11:59 11:59 Intake Total 600 / 600 1570 / 1570 Output Total 3700 / 3700 1600 / 1600 Balance -3100 / -3100 -30 / -30 Weight 203 lb 197 lb 4.8 oz 196 lb 14.4 oz - Constitutional no acute distress - *Routine Respiratory Exam Present: CTA bilaterally - *Routine Cardiovascular Exam Present: RRR - *Routine Abdominal Exam Present: soft, normoactive bowel sounds. Absent: tenderness Assessment and Plan (1) GI bleed Status: Acute Category: Medical Code(s): K92.2 - Gastrointestinal hemorrhage, unspecified (2) Diabetes Status: Acute Category: Medical Code(s): E11.9 - Type 2 diabetes mellitus without complications (3) Esophagitis Status: Acute Category: Medical Code(s): K20.90 - Esophagitis, unspecified without bleeding (4) HIV (human immunodeficiency virus infection) Status: Acute Category: Medical Code(s): B20 - Human immunodeficiency virus [HIV] disease (5) HLD (hyperlipidemia) Status: Acute Category: Medical Code(s): E78.5 - Hyperlipidemia, unspecified (6) HTN (hypertension) Status: Acute Category: Medical Code(s): I10 - Essential (primary) hypertension (7) Pulmonary emboli Status: Acute Qualifiers: Category: Medical Code(s): I26.99 - Other pulmonary embolism without acute cor pulmonale - Assessment and plan all Dx Assessment and Plan for all problems:: 1. Continue IV Protonix twice daily and oral Reglan 2. Serial H&H's with transfusion for hemoglobin less than 7. Morning labs are still pending. 3. Continue liquid diet
[2021-08-27 07:31] LABS: Anion Gap 8.7 mEq/L (5-15); Blood Urea Nitrogen 16 mg/dl (9-20); Calcium 8.3 mg/dl (8.4-10.2); Carbon Dioxide 27 mmol/L (22.0-30.0); Chloride 103 mmol/L (98-107); Creatinine Clearance Estimated 93 mL/min (50-200); Estimated Glomerular Filt Rate 97 ml/min (>60); GFR (African American) 117 ML/MIN (>60); Glucose 151 mg/dl (74-100); Potassium 3.7 mmoL/L (3.5-5.1); Sodium 135 mmol/L (136-145)
[2021-08-27 07:36] LABS: Hemoglobin 7.8 g/dL (14.1-18.0)
[2021-08-27 08:06] LABS: POC Glucose,Bedside 205 (70-110)
[2021-08-27 11:51] LABS: POC Glucose,Bedside 202 (70-110)
[2021-08-27 16:14] LABS: Hematocrit 23.1 % (42.0-52.0); Hemoglobin 7.7 g/dL (14.1-18.0)
--- NOTE | 2021-08-27 16:17 | PC.NURSE ---
patient has done well this shift. has had no complaints besides desire to go home. no signs of bleeding noted. tolerating clear liquid well. did sit up in chair. mata continues to drain yellow urine. independent with turns. vitals stable
[2021-08-27 21:33] LABS: POC Glucose,Bedside 126 (70-110)
[2021-08-28 04:00] VITALS: BP 128/65; PULSE 88; RESP 16; TEMP 37; O2SAT 98
[2021-08-28 06:09] LABS: POC Glucose,Bedside 125 (70-110)
--- NOTE | 2021-08-28 06:14 | PC.NURSE ---
A&OX4. TOLERATING 2LNC WELL. HAS SLEPT MAJORITY OF SHIFT. F/C DRAINING DARK YELLOW URINE. NO C/O PAIN, NA/VO. VSS WILL CONTINUE TO MONITOR.
--- NOTE | 2021-08-28 06:53 | HMH.ACPN2 ---
Internal Medicine - PN: Subj *Date: 08/28/21 *Time: 06:53 Interval history: Patient has no complaints. He denies shortness of breath or lightheadedness with ambulation. He has not had any follow-up nausea or vomiting. Patient has not had a bowel movement. Exam Vital signs and Labs for Last 24 Hours: Temp Pulse Resp BP Pulse Ox 98.6 F 88 16 128/65 98 08/28/21 04:00 08/28/21 04:00 08/28/21 04:00 08/28/21 04:00 08/28/21 04:00 Laboratory Results - last 24 hr 08/26/21 20:54: POC Glucose 205 H 08/27/21 05:26: POC Glucose 148 H 08/27/21 06:56: WBC 7.8 D, RBC 2.42 L, Hgb 7.8 L D, Hct 24.0 L, MCV 99.0 H, MCH 31.9 H, MCHC 32.3, RDW 14.9, Plt Count 233, MPV 7.9, Neut % (Auto) 59.1, Lymph % (Auto) 34.0, [place] % (Auto) 5.6, Eos % (Auto) 0.6, Baso % (Auto) 0.7, Neut # (Auto) 4.6, Lymph # (Auto) 2.6, [place] # (Auto) 0.4, Eos # (Auto) 0.0, Baso # (Auto) 0.1 08/27/21 06:56: Sodium 135 L, Potassium 3.7, Chloride 103, Carbon Dioxide 27, Anion Gap 8.7, BUN 16 D, Creatinine 0.80, Estimated Creat Clear 93, Estimated GFR 97, Est GFR ( Amer) 117, Glucose 151 H D, Calcium 8.3 L 08/27/21 11:38: POC Glucose 202 H 08/27/21 16:00: Hgb 7.7 L, Hct 23.1 L 08/27/21 20:36: POC Glucose 126 H 08/28/21 05:22: POC Glucose 125 H I & O for Last 24 hours: Intake & Output 08/25/21 08/26/21 08/27/21 08/28/21 11:59 11:59 11:59 11:59 Intake Total 600 / 600 1570 / 1570 720 / 720 Output Total 3700 / 3700 1600 / 1600 2500 / 2500 Balance -3100 / -3100 -30 / -30 -1780 / -1780 Weight 203 lb 196 lb 3.382 oz 196 lb 14.4 oz Narrative: Patient appears comfortable. Lungs are clear. Heart has a regular rate and rhythm. Abdomen is soft and nontender Labs are pending this morning Assessment and Plan (1) GI bleed Status: Acute Category: Medical Code(s): K92.2 - Gastrointestinal hemorrhage, unspecified (2) Diabetes Status: Acute Category: Medical Code(s): E11.9 - Type 2 diabetes mellitus without complications (3) Esophagitis Status: Acute Category: Medical Code(s): K20.90 - Esophagitis, unspecified without bleeding (4) HIV (human immunodeficiency virus infection) Status: Acute Category: Medical Code(s): B20 - Human immunodeficiency virus [HIV] disease (5) HLD (hyperlipidemia) Status: Acute Category: Medical Code(s): E78.5 - Hyperlipidemia, unspecified (6) HTN (hypertension) Status: Acute Category: Medical Code(s): I10 - Essential (primary) hypertension (7) Pulmonary emboli Status: Acute Qualifiers: Category: Medical Code(s): I26.99 - Other pulmonary embolism without acute cor pulmonale - Assessment and plan all Dx Assessment and Plan for all problems:: 1. Continue intravenous PPI 2. Continue liquid diet 3. Begin MiraLAX for bowel regularity 4. Continue serial CBCs monitoring H&H with transfusions for hemoglobin of 7 or less
[2021-08-28 07:59] VITALS: BMI 33.9
[2021-08-28 08:00] VITALS: BP 132/68; PULSE 86; RESP 19; TEMP 36.7; O2SAT 96
[2021-08-28 08:19] LABS: Basophils % 0.6 % (0.1-2.0); Eosinophils # 0.1 K/mm3 (0.0-0.4); Eosinophils % 1.4 % (0.1-12.0); Hematocrit 24.3 % (42.0-52.0); Hemoglobin 7.8 g/dL (14.1-18.0); Lymphocytes # 2.2 K/mm3 (0.7-4.5); Lymphocytes % 33.1 % (10-50); Mean Corpuscular HGB Conc 32.2 g/dL (31.8-35.4); Mean Corpuscular Hemoglobin 31.9 pg (27.0-31.2); Mean Platelet Volume 7.9 fl (7.4-10.4); Monocytes # 0.6 K/mm3 (0.1-1.0); Monocytes % 8.8 % (1.7-9.3); Neutrophils # 3.7 K/mm3 (1.8-7.8); Neutrophils % 56.2 % (37.0-80.0); Platelet Count 239 K/mm3 (142-424); Red Blood Count 2.46 M/mm3 (4.60-6.20); Red Cell Distribution Width 15.8 % (11.5-17.5); White Blood Count 6.6 K/mm3 (4.8-10.8)
[2021-08-28 08:27] LABS: Anion Gap 7.6 mEq/L (5-15); Blood Urea Nitrogen 10 mg/dl (9-20); Calcium 8.4 mg/dl (8.4-10.2); Carbon Dioxide 27 mmol/L (22.0-30.0); Chloride 106 mmol/L (98-107); Creatinine Clearance Estimated 94 mL/min (50-200); Estimated Glomerular Filt Rate 97 ml/min (>60); GFR (African American) 117 ML/MIN (>60); Glucose 134 mg/dl (74-100); Potassium 3.6 mmoL/L (3.5-5.1); Sodium 137 mmol/L (136-145)
[2021-08-28 11:38] LABS: POC Glucose,Bedside 115 (70-110)
[2021-08-28 11:39] LABS: POC Glucose,Bedside 217 (70-110)
[2021-08-28 12:00] VITALS: BP 109/56; PULSE 74; RESP 19; TEMP 36.7; O2SAT 98
--- NOTE | 2021-08-28 14:23 | DIET.NUTRFU ---
Patient has been on clear liquid diet for 3 days, needs supplement to replenish calorie and protein needs. Glucerna will be provided on all lunch and dinner trays.
[2021-08-28 16:00] VITALS: BP 126/63; PULSE 87; RESP 18; TEMP 36.6; O2SAT 98
[2021-08-28 17:28] LABS: POC Glucose,Bedside 161 (70-110)
--- NOTE | 2021-08-28 19:50 | PC.NURSE ---
patient has done well this shift. has had no complaints. did have an incontinence episode of tarry bm. dr chow aware. has been up in room walking. refused miralax after bm this morning. 2l nasal cannula remains in place. sat in chair most of day. per geraldo upgraded diet to full liquid and is tolerating this well. vitals stable.
[2021-08-28 20:00] VITALS: BP 135/71; PULSE 68; RESP 18; TEMP 36.9; O2SAT 98
--- NOTE | 2021-08-29 03:44 | PC.NURSE ---
Pt has no c/o this shift. VSS. pt has rested quietly throughout shift. mata patent, draining
[2021-08-29 04:00] VITALS: BP 119/70; PULSE 75; RESP 18; TEMP 37.2; O2SAT 100
[2021-08-29 05:09] VITALS: BMI 33.5
--- NOTE | 2021-08-29 07:04 | P.PN_ITS ---
Subjective Patient reports: no new complaints Progress Note: A&P (1) GI bleed Status: Acute Assessment and plan: No evidence of ongoing blood loss. Follow-up morning hemoglobin/hematocrit Likely discharge home today with close outpatient follow-up if hemoglobin stable (2) Diabetes Status: Acute (3) Esophagitis Status: Acute (4) HIV (human immunodeficiency virus infection) Status: Acute (5) HLD (hyperlipidemia) Status: Acute (6) HTN (hypertension) Status: Acute (7) Pulmonary emboli Status: Acute Exam Vital signs and Labs for Last 24 Hours: Temp Pulse Resp BP Pulse Ox 98.9 F 75 18 119/70 100 08/29/21 04:00 08/29/21 04:00 08/29/21 04:00 08/29/21 04:00 08/29/21 04:00 Laboratory Results - last 24 hr 08/27/21 17:07: POC Glucose 115 H 08/28/21 07:08: WBC 6.6, RBC 2.46 L, Hgb 7.8 L, Hct 24.3 L, MCV 99.0 H, MCH 31.9 H, MCHC 32.2, RDW 15.8, Plt Count 239, MPV 7.9, Neut % (Auto) 56.2, Lymph % (Auto) 33.1, [place] % (Auto) 8.8, Eos % (Auto) 1.4, Baso % (Auto) 0.6, Neut # (Auto) 3.7, Lymph # (Auto) 2.2, [place] # (Auto) 0.6, Eos # (Auto) 0.1, Baso # (Auto) 0.0 08/28/21 07:08: Sodium 137, Potassium 3.6, Chloride 106, Carbon Dioxide 27, Anion Gap 7.6, BUN 10 D, Creatinine 0.80, Estimated Creat Clear 94, Estimated GFR 97, Est GFR ( Amer) 117, Glucose 134 H, Calcium 8.4 08/28/21 11:28: POC Glucose 217 H 08/28/21 16:52: POC Glucose 161 H I & O for Last 24 hours: Intake & Output 08/26/21 08/27/21 08/28/21 08/29/21 11:59 11:59 11:59 11:59 Intake Total 600 / 600 1570 / 1570 960 / 960 840 / 840 Output Total 3700 / 3700 1600 / 1600 3500 / 3500 1000 / 1000 Balance -3100 / -3100 -30 / -30 -2540 / -2540 -160 / -160 Weight 196 lb 3.382 oz 196 lb 14.4 oz 198 lb 13.711 oz 196 lb 12.8 oz - Constitutional no acute distress - *Routine Respiratory Exam Absent: respiratory distress - *Routine Cardiovascular Exam Absent: tachycardia
[2021-08-29 07:29] LABS: Basophils % 0.5 % (0.1-2.0); Eosinophils # 0.2 K/mm3 (0.0-0.4); Eosinophils % 2.5 % (0.1-12.0); Hematocrit 24.9 % (42.0-52.0); Hemoglobin 8.3 g/dL (14.1-18.0); Lymphocytes % 29.1 % (10-50); Mean Corpuscular HGB Conc 33.1 g/dL (31.8-35.4); Mean Corpuscular Volume 99.6 fl (80-94); Mean Platelet Volume 8.3 fl (7.4-10.4); Monocytes # 0.5 K/mm3 (0.1-1.0); Monocytes % 7.5 % (1.7-9.3); Neutrophils # 4.1 K/mm3 (1.8-7.8); Neutrophils % 60.5 % (37.0-80.0); Platelet Count 252 K/mm3 (142-424); Red Cell Distribution Width 16.6 % (11.5-17.5); White Blood Count 6.8 K/mm3 (4.8-10.8)
[2021-08-29 07:38] LABS: Blood Urea Nitrogen 6 mg/dl (9-20); Calcium 8.6 mg/dl (8.4-10.2); Carbon Dioxide 29 mmol/L (22.0-30.0); Chloride 107 mmol/L (98-107); Creatinine Clearance Estimated 93 mL/min (50-200); Estimated Glomerular Filt Rate 113 ml/min (>60); GFR (African American) 137 ML/MIN (>60); Glucose 125 mg/dl (74-100); Sodium 137 mmol/L (136-145)
--- NOTE | 2021-08-29 07:57 | HMH.DCSUM ---
General - General Admission date:: 08/25/21 Discharge date: 08/29/21 HPI HPI: 66-year-old white male with chronic HIV, currently well controlled on protease inhibitors who has had a fairly complex medical history over the past couple of months. He had chronic urinary incontinence and recently, in July 2021 had an automatic urinary bladder stimulator placed at [facility]. He has had an indwelling Gooden catheter for several months, but his most recent trial of stimulator function was not successful and he has continued the indwelling catheter. He came to the hospital here last week because of shortness of air after being discharged from the stimulator placement procedure at [facility], and was found to have pulmonary embolism. Appropriately worked up and treated, discharged on Xarelto 15 mg twice daily which she has been compliant with. Yesterday evening he noticed black, melanotic stools, felt significant heartburn and nausea-Dr. Bennett has placed him on a proton pump inhibitor at home over the past several days, but in spite of this he had heartburn, nausea and then this morning threw up dark coffee-ground/bloody material. Came to the emergency department. Found to be hemodynamically stable with no significant decline in hemoglobin but given his issues with vomiting, bleeding and currently exposure to anticoagulation therapy was admitted for further evaluation, IV fluids, following serial hemoglobins and surgery consultation. Hospital Course Hospital Course: Patient was admitted for upper GI bleed. On the patient underwent endoscopy by Dr. Kenny which showed evidence of esophageal bleed. Patient had epinephrine injected into the area of bleeding and tamponade. There was no active bleeding. Post procedurally H&H was followed closely. Patient did require 1 unit of packed red blood cells when hemoglobin dropped to 6.8. Hemoglobin subsequently laury to 7.8 and on the day of discharge had risen to 8.3. Patient was placed on clear liquids for 48 hours post procedure to ensure stabilization of H&H. There were no signs of continued bleeding. Patient denied heartburn, epigastric pain, nausea and had no further vomiting. Patient was placed on Lovenox during hospitalization as an alternative to his Xarelto for pulmonary embolism. CT scan performed in the emergency department showed persistence of pulmonary embolism. On the patient's H&H was stable. He had been started on iron supplementation and this will be continued as an outpatient. He will continue a full liquid/soft diet for at least another 10 days. Patient will be placed on PPI and Reglan. Patient will resume Xarelto 15 mg twice daily. It has been discussed with patient that if he is at high risk of rebleeding due to his need for anticoagulants. Iron will darken his stool and therefore symptoms such as shortness of breath or lightheadedness should be used to trigger evaluation if he believes he is becoming anemic. Objective Vital signs: Temp Pulse Resp BP Pulse Ox 98.9 F 75 18 119/70 100 08/29/21 04:00 08/29/21 04:00 08/29/21 04:00 08/29/21 04:00 08/29/21 04:00 no acute distress - *Routine Respiratory Exam Present: CTA bilaterally - *Routine Cardiovascular Exam Present: RRR - *Routine Abdominal Exam Present: soft, normoactive bowel sounds. Absent: tenderness Results Labs on day of discharge: Labs from last 24 hours 08/29/21 08/29/21 08/28/21 06:23 06:23 16:52 WBC 6.8 RBC 2.50 L Hgb 8.3 L Hct 24.9 L MCV 99.6 H MCH 33.0 H MCHC 33.1 RDW 16.6 Plt Count 252 MPV 8.3 Neut % (Auto) 60.5 Lymph % (Auto) 29.1 [place] % (Auto) 7.5 Eos % (Auto) 2.5 Baso % (Auto) 0.5 Neut # (Auto) 4.1 Lymph # (Auto) 2.0 [place] # (Auto) 0.5 Eos # (Auto) 0.2 Baso # (Auto) 0.0 Sodium 137 Potassium 4.0 Chloride 107 Carbon Dioxide 29 Anion Gap 5.0 B
[2021-08-29 08:00] VITALS: BP 145/75; PULSE 98; RESP 16; TEMP 36.6; O2SAT 95
[2021-08-29 11:27] LABS: POC Glucose,Bedside 194 (70-110)
[2021-08-29 16:54] LABS: POC Glucose,Bedside 157 (70-110)
== END 2021-08-29 09:36 | disposition home or self-care (01) | DRG 368 ==
LOC: ER 08:55 → 2ND 11:07
PROVIDERS: Surgery; Admitting Provider Internal Medicine Adolescent Medicine; Emergency Provider Student in an Organized Health Care Education/Training Program; PCP Family Medicine; Visit Provider Family Medicine
PROC: 0DJ08ZZ Inspection of Upper Intestinal Tract, Via Natural or Artificial Opening Endoscopic (ICD-10-PCS; CPT 43235; principal; 2021-08-26 08:00)
DX: K20.81 Other esophagitis with bleeding (principal); I26.99 Other pulmonary embolism without acute cor pulmonale; B20 Human immunodeficiency virus [HIV] disease; E11.9 Type 2 diabetes mellitus without complications; E78.5 Hyperlipidemia, unspecified; I10 Essential (primary) hypertension; Z79.02 Long term (current) use of antithrombotics/antiplatelets; Z85.46 Personal history of malignant neoplasm of prostate; Z86.718 Personal history of other venous thrombosis and embolism; K21.9 Gastro-esophageal reflux disease without esophagitis; R32 Unspecified urinary incontinence; Z20.822 Contact with and (suspected) exposure to COVID-19
CPT/HCPCS: 43255; 36415; 71045; 71275; 80048; 80053; 82962; 83880; 84484; 85007; 85014; 85018; 85025; 85610; 85730; 86850; 93005; 96374; 99284; C1726; C9803; J2405; P9016; Q9967; U0003; U0005

== ENCOUNTER → 2021-09-16 10:54 | Outpatient (CLI) | payer BC, SELFPAY | PROVIDERS: Visit Provider Nurse Practitioner | DX: Z20.822 Contact with and (suspected) exposure to COVID-19 (principal) | CPT/HCPCS: C9803; U0003; U0005 ==

== ENCOUNTER 2021-09-20 10:41 | Outpatient (CLI) | payer BC, SELFPAY ==
[2021-09-20 14:25] VITALS: BP 135/71; PULSE 75; RESP 18; TEMP 36.4
== END 2021-09-20 14:35 | disposition home or self-care (01) ==
LOC: LAB 10:42 → INF 14:13
PROVIDERS: PCP Family Medicine; Visit Provider Surgery
DX: I26.99 Other pulmonary embolism without acute cor pulmonale (principal); Z11.52 Encounter for screening for COVID-19
CPT/HCPCS: 96372; C9803; U0003; U0005

== ENCOUNTER → 2022-01-01 11:46 | Outpatient (CLI) | payer BC, SELFPAY ==
[2022-01-01 12:55] LABS: Prostate Specific Ag, Diagnost < 0.064 ng/ml (0.0-4.0)
== END ==
PROVIDERS: PCP Family Medicine; Visit Provider Urology
DX: C61 Malignant neoplasm of prostate (principal)
CPT/HCPCS: 36415; 84153

== ENCOUNTER → 2022-02-25 11:37 | Outpatient (POV) | payer BC, SELFPAY ==
[2022-02-25 12:04] VITALS: BP 150/68; PULSE 84; RESP 20; O2SAT 96; BMI 35.0
--- NOTE | 2022-02-25 14:40 | HMH.PMCON ---
Assessment and Plan (1) Bilateral knee pain Status: Acute Category: Medical Code(s): M25.561 - Pain in right knee; M25.562 - Pain in left knee - Assessment and plan all Dx Assessment and Plan for all problems:: Pt presents today with a c/o of samreen knee pain. Will order samreen weighted knee x-rays today. He went for his x-ray today which shows mild OA and has early signs of patellofemoral syndrome. Will refer to PT. Will start compounding cream and diclofenac bid #30 tabs; follow-up in 2 weeks Patient has been instructed to contact the clinic with any concerns before the next appointment. Dr. Bedoya has reviewed this note and agrees with this plan of care. This note was dictated using voice recognition software and make contain errors or omissions. HPI - Data of Consult Patient: new to practice Consult date: 02/25/22 Requesting Physician: AB Reynaga Primary Care Provider: Yefri Bennett MD - Consult Narrative Reason for consult: Bilateral knee pain History of present illness: Mr. Johnson is a 66 year old male who presents today as a new patient. Patient was initially evaluated during an outreach program at . Patient presents today with chronic bilateral knee pain, left worse than the right. He states that he has been having intermittent knee pain in the last several months. He does states that this got better when he rests. He continues to work at . He is on his feet all day. He does not take anything for pain other than OTC medications. He has never been to physical therapy or seeing any orthopedic providers. He does use topical creams at times. Rates his pain as 3 out of 10. Hernandez [phone] with an active morphine equivalent of 0. He was previously prescribed [place] 7.5 mg for a few days by Dr. Gallo. CC: AB Reynaga [facility] History I have reviewed the patient's past medical history: Yes Medical History: Reports:: Deep Vein Thrombosis, Diabetes Mellitus Type 2, Hyperlipidemia, Hypertension Denies:: Cancer, Diabetes Mellitus Type 1, Internal Pacemaker, Lung Disease, MRSA, Seizures *Have you ever received a pneumonia vaccine?: Yes *Have you received a flu vaccine this season?: Yes Other Medical History: Reports: Arthritis, HIV. Denies: Blood Transfusion Reaction Other Surgeries: Yes: No Previous Surgery, Colonoscopy, EGD, Hernia Repair, Other (Prostatectomy). No: Pacemaker Amputation: No Fractures: No - *Social History Smoking Status: Never smoker Tobacco Type: cigarettes Alcohol Intake: never Alcohol Intake Frequency:: a few times a month Substance Use Type: denies use *Occupational Status:: employed Housing: house Household Members: other *Travel in the last 8 weeks: None Family Hx:: Cancer, Diabetes, Heart Attack, Hypertension, Kidney Disease, Stroke Review of Systems - Review of Systems Review of Systems: General: No recent weight changes, no fever, no sleep disturbances Respiratory: No cough, no shortness of air, no recurring pulmonary infections Cardiovascular/peripheral vascular: No chest pain, no palpitations, no edema, no shortness of breath Gastrointestinal: No new onset incontinence, normal bowel movements reported Genitourinary: No new onset incontinence Musculoskeletal: Bilateral knee pain Psychiatric: [Normal mood/affect] Neurological: [Denies weakness in extremities], [denies balance issues] Meds Home Medications Medication Instructions Recorded Confirmed Type Atorvastatin Calcium [Lipitor 10mg 10 mg PO DAILY 01/27/18 02/25/22 History Tab] Elviteg/Flora/Emtric/Tenofo Ala 1 each PO DAILY 01/27/18 02/25/22 History [Genvoya Tablet] Fenofibrate [Fenoglide] 145 mg PO DAILY 01/27/18 02/25/22 History glipiZIDE [Glipizide] 10 mg PO DAILY 08/10/21 02/25/22 History Pantoprazole Sodium [Protonix 40mg 40 mg PO DAILY 08/25/21 02/25/22 History (granule) packet] Insulin Glargine/Lixisenatide 40 ml SQ DAILY 02/25/22 02/25/22 History [[address]
== END ==
PROVIDERS: PCP Family Medicine; Visit Provider Student in an Organized Health Care Education/Training Program
DX: M25.561 Pain in right knee (principal); M25.562 Pain in left knee
CPT/HCPCS: 99202; G0463

== ENCOUNTER → 2022-02-25 12:13 | Outpatient (CLI) | payer BC, SELFPAY ==
--- NOTE | 2022-02-25 12:19 | XR_ITS ---
FINAL REPORT CLINICAL HISTORY: ROYCE KNEE PAIN FINDINGS: LEFT KNEE Four views of the left knee were obtained. There is no acute fracture or dislocation. There is early patellofemoral joint degenerative disease. No joint effusion is identified. IMPRESSION: Early patellofemoral joint degenerative disease. Reviewed, Interpreted and Dictated by Polina Lilly MD Transcribed by Erika David Authenticated and [facility]
--- NOTE | 2022-02-25 12:19 | XR_ITS ---
FINAL REPORT CLINICAL HISTORY: ROYCE KNEE PAIN FINDINGS: RIGHT KNEE Four views of the right knee were obtained. There is no acute fracture or dislocation. There is early patellofemoral joint degenerative disease. No joint effusion is identified. IMPRESSION: Early patellofemoral joint degenerative disease. Reviewed, Interpreted and Dictated by Polina Lilly MD Transcribed by Erika David Authenticated and . [facility]
== END ==
PROVIDERS: PCP Family Medicine; Visit Provider Student in an Organized Health Care Education/Training Program
DX: M25.562 Pain in left knee (principal); M25.561 Pain in right knee
CPT/HCPCS: 73564

== ENCOUNTER → 2022-03-11 12:58 | Outpatient (POV) | payer BC, SELFPAY ==
[2022-03-11 13:05] VITALS: BP 140/71; PULSE 72; RESP 20; BMI 36.0
--- NOTE | 2022-03-11 13:10 | HMH.PAINSOAP ---
[facility] Pain Management SOAP Note Subjective:: Patient is a pleasant 66-year-old male that presents today for follow-up. We are currently treating him for bilateral knee pain. Patient rates his pain today a 0 out of 10. He states that he is doing well. We have sent him to physical therapy. He states this is helping provide some relief. He is also been using compounding cream with some improvement. He stated that he would occasionally have a clicking in his knees followed by a sharp pain. He stated this was with increased activity. He does take ohog-sce-vuiiasp Tylenol as needed. His primary care provider had stated that they do not want him on NSAIDs such as the diclofenac that we previously prescribed. Patient denies any trauma or injury to the site. He denies any change to the location or type of pain he experiences. His Hernandez is [phone]. It has been reviewed and appropriate. Review of Systems: General: No recent weight changes, no fever, no sleep disturbances Respiratory: No cough, no shortness of air, no recurring pulmonary infections Cardiovascular/peripheral vascular: No chest pain, no palpitations, no edema, no shortness of breath Gastrointestinal: No new onset incontinence, normal bowel movements reported Genitourinary: No new onset incontinence Musculoskeletal: Bilateral knee pain Psychiatric: [Normal mood/affect] Neurological: [Denies weakness in extremities], [denies balance issues] Objective:: Physical Exam: General: Alert and oriented x3, no acute distress, pleasant and cooperative Lungs: Respirations even and unlabored, symmetrical chest expansion Eyes: PERRL Musculoskeletal: Flexion and extension of bilateral knees somewhat guarded secondary to pain, [antalgic gait noted] Neurological: Speech clear, no gross sensory deficit Assessment:: Bilateral knee pain Plan:: Patient is not experiencing significant pain at today's visit. We do have him currently seeing physical therapy and using a compounding cream. Patient is doing well with this regimen. We will follow-up with the patient in 1 month. Patient will return to clinic in 1 month for follow-up and reevaluation of symptoms. Patient has been instructed to contact the clinic with any concerns before the next appointment. Dr. Bedoya has reviewed this note and agrees with this plan of care. This note was dictated using voice recognition software and make contain errors or omissions. [facility] History I have reviewed the patient's past medical history: Yes Medical History: Reports:: Deep Vein Thrombosis, Diabetes Mellitus Type 2, Hyperlipidemia, Hypertension Denies:: Cancer, Diabetes Mellitus Type 1, Internal Pacemaker, Lung Disease, MRSA, Seizures *Have you ever received a pneumonia vaccine?: Yes *Have you received a flu vaccine this season?: Yes Other Medical History: Reports: Arthritis, HIV. Denies: Blood Transfusion Reaction Other Surgeries: Yes: No Previous Surgery, Colonoscopy, EGD, Hernia Repair, Other (Prostatectomy). No: Pacemaker Amputation: No Fractures: No - *Social History Smoking Status: Never smoker Tobacco Type: cigarettes Alcohol Intake: never Alcohol Intake Frequency:: a few times a month Substance Use Type: denies use *Occupational Status:: employed Housing: house Household Members: other *Travel in the last 8 weeks: None Family Hx:: Cancer, Diabetes, Heart Attack, Hypertension, Kidney Disease, Stroke
== END ==
PROVIDERS: PCP Family Medicine; Visit Provider Nurse Practitioner Family
DX: M17.0 Bilateral primary osteoarthritis of knee (principal)
CPT/HCPCS: 99212; G0463

== ENCOUNTER → 2022-04-11 10:35 | Outpatient (POV) | payer BC, SELFPAY ==
[2022-04-11 11:03] VITALS: BP 146/72; PULSE 71; RESP 18; TEMP 37.2; O2SAT 94; BMI 36.8
--- NOTE | 2022-04-11 11:03 | A.OFFVIS_ITS ---
[facility] Pain Management SOAP Note Subjective:: Patient is a pleasant 66-year-old male who presents today for follow-up. We are currently treating the patient for bilateral knee pain. Today the patient rates his pain a 0 out of 10. He states overall his he is doing well. He does state he has occasional aches in his bilateral knees however the physical therapy he is started continues to provide relief. He does have the compounding cream that he has tried and states minimal improvement of his symptoms. Patient continues to take antp-tfe-ydokaxj Tylenol as needed. Patient denies any new trauma or injury to the site. He denies any change in the location or type of pain he experiences. His Hernandez is [id number]. It is been reviewed and appropriate. review of Systems: General: No recent weight changes, no fever, no sleep disturbances Respiratory: No cough, no shortness of air, no recurring pulmonary infections Cardiovascular/peripheral vascular: No chest pain, no palpitations, no edema, no shortness of breath Gastrointestinal: No new onset incontinence, normal bowel movements reported Genitourinary: No new onset incontinence Musculoskeletal: [Bilateral knee pain] Psychiatric: [Normal mood/affect] Neurological: [Denies weakness in extremities], [denies balance issues]. Objective:: Physical Exam: General: Alert and oriented x3, no acute distress, pleasant and cooperative Lungs: Respirations even and unlabored, symmetrical chest expansion Eyes: PERRL Musculoskeletal: Flexion and extension of bilateral knees somewhat guarded secondary to pain, [antalgic gait noted] Neurological: Speech clear, no gross sensory deficit Assessment:: Bilateral knee pain Plan:: Patient continues to have occasional bilateral knee pain however states it has improved following physical therapy. At this time he does not need any injective therapy. We will schedule the patient for a 3-month follow-up. He will return to clinic in 3 months for reevaluation of symptoms. Patient has been instructed to contact the clinic with any concerns before the next appointment. Dr. Bedoya has reviewed this note and agrees with this plan of care. This note was dictated using voice recognition software and make contain errors or omissions. [facility] Social History Smoking Status: Never smoker alcohol intake: never substance use type: denies use current occupational status: employed Travel in the last 8 weeks: None household members: other housing: house current occupation: 3M caffeine: Yes
== END ==
PROVIDERS: PCP Family Medicine; Visit Provider Nurse Practitioner Family
DX: M25.561 Pain in right knee (principal); M25.562 Pain in left knee
CPT/HCPCS: 99212; G0463

== ENCOUNTER 2022-04-26 09:30 | Outpatient (RCR) | payer BC, SELFPAY ==
--- NOTE | 2022-03-01 09:52 | HMH.PTOPEV ---
PT Outpatient Evaluation Rehab PT Outpatient Evaluation Start: 03/01/22 09:27 Freq: Status: Active Protocol: Document 03/01/22 09:37 DALY (Rec: 03/01/22 09:52 DALY [id number]) Electronically Signed By Alberto Payan, PT 03/01/22 09:37 Outpatient Therapy Subjective History Subjective History Patient is a 66 year old male presenting to outpatient PT with reports of R knee pain starting approximately 5 years ago of insidious onset. No recent R knee imaging on file. L knee imaging indicates PFJ degeneration. Comorbidities include hx of abdominal ulcers , prostate cancer and multiple hernias. Chief Complaint Pain,Clicks,Gives out/Unstable ,Weakness Symptom Type Ache Symptoms Relieved By Rest/Positioning,Brace/Support Symptoms Aggravated By Standing,Physical Activity, Walking Prior Functional Limitations Standing,Walking Current Functional Limitations Housework,Standing,Walking Symptom Description Intermittent Level of pain today (0-10) 0 Pain scale - at its best (0-10) 0 Pain scale - at its worst (0-10) 6 Hip/Knee Eval Gait Observation General Gait Pattern Observation Antalgic Gait,Decrease Weight Bear (R) Assistive Device Assistive Devices None / NA Palpation Tenderness right Knee Palpation Finding Tenderness Knee Palpation Overall Comment medial joint line 2/4 MMT Hip Flexion Strength Grade 4 Good Hip Abduction Strength Grade 4- Good- Hip Adduction Strength Grade 3+ Fair+ Hip Extension Strength Grade 4- Good- Hip External Rotation Strength Grade 4- Good- Hip Internal Rotation Strength Grade 4- Good- Knee Extension Strength Grade 4- Good- Knee Flexion Strength Grade 4- Good- ROM Hip ROM Reason Not Measured Within Functional Limits Knee Extension Active Range of Motion ( -2 degrees) Knee Flexion Active Range of Motion ( 125 degrees) Special Tests Knee Apley Compression Test Positive Right Knee Anterior Drawer Test Negative Right Knee Anterior Isabelle Test Negative Right Knee Valgus Stress Test Positive Right Outpatient Therapy Assessment Impairments Problems/Impairmments Palpation Tenderness,Impaired Range of Motion,Impaired Strength,Impaired Gait Pattern ,Impaired Walking,Impaired
--- NOTE | 2022-04-02 11:01 | HMH.RHREAS ---
Rehab Reassessment Rehab OP Re-assessment Start: 04/02/22 10:49 Freq: Status: Active Protocol: Document 04/02/22 10:49 RAMSES (Rec: 04/02/22 10:52 RAMSES [id number]) E-signed By Jersey Watkins, PT Rehab Re-assessment Subjective Subjective Pt reports 0/10 right knee this am on VAS, and feels 75- 80% better since I eval Objective Objective Notes AROM: RIGHT KNEE FLX 0-125 MMT: R HIP FLX 5/5, ABD 4-4+/5 , ADD 4/5, EXT 4/5, R KNEE FLX 4+/5, R KNEE EXT 5/5 TTP: 0/4 RIGHT KNEE GAIT: WFL ON LEVEL TERRAIN Assessment Progress Assessment Progressing as Expected Assessment Notes IMPROVED STRENGTH, TTP, GAIT, AND ROM Patient goals met STG'S 2/2 LTG'S 47 Goals Not Met LTG'S 3/7 Plan Plan Pt to continue w/skilled P.T. to make futher improvements in right knee AROM, STRENGTH, AND GAIT to allow for optimal function Frequency of Therapy 1-2x/wk Duration of therapy 3-4wks Time and Billing Re-Eval Time 12 Re-Eval Billing Units 1 PHYSICIAN CERTIFICATION: I certify the specified therapy services for Humberto Johnson are required, authorized, and reviewed every 30 days.
== END 2022-04-26 09:35 | disposition home or self-care (01) ==
LOC: PT 09:30
PROVIDERS: PCP Family Medicine; Visit Provider Student in an Organized Health Care Education/Training Program
DX: M25.562 Pain in left knee (principal); M25.561 Pain in right knee
CPT/HCPCS: 97110; 97163; 97164

== ENCOUNTER → 2022-08-13 09:29 | Outpatient (CLI) | payer BC, SELFPAY ==
--- NOTE | 2022-08-13 09:35 | US_ITS ---
FINAL REPORT CLINICAL HISTORY: MASS OF RT LEG FINDINGS: Limited sonographic images were obtained at the palpable area of the right knee. A 4.6 cm soft tissue mass is seen in the anterior right knee which likely represents a lipoma. IMPRESSION: A soft tissue mass is seen in the area of interest, likely representing a lipoma. Reviewed, Interpreted and Dictated by Asif Ortiz III, MD Transcribed by Erika David Authenticated and [facility]
== END ==
PROVIDERS: PCP Family Medicine; Visit Provider Family Medicine
DX: R22.41 Localized swelling, mass and lump, right lower limb (principal)
CPT/HCPCS: 76882

== ENCOUNTER 2022-10-22 07:33 | Day surgery (SDC) | payer BC, SELFPAY ==
[2022-10-22 07:54] VITALS: BP 160/60; PULSE 60; RESP 18; TEMP 36.6; O2SAT 60; BMI 42.9
[2022-10-22 08:21] LABS: POC Glucose,Bedside 182 (70-110)
[2022-10-22 08:26] VITALS: O2SAT 97
--- NOTE | 2022-10-22 08:26 | P.PN_ITS ---
[facility] Disclaimer: The information contained in this section may have been updated after the patient was seen, as this information can be updated by other users. Medical History (Updated 10/22/22 @ 07:52 by Vic Fuller RN) Diabetes mellitus GERD (gastroesophageal reflux disease) HIV (human immunodeficiency virus infection) HLD (hyperlipidemia) HTN (hypertension) Murmur Surgical History (Updated 10/22/22 @ 07:52 by Vic Fuller RN) H/O vasectomy Family History (Updated 10/22/22 @ 07:53 by Vic Fuller RN) Other Family history of CVA Family history of diabetes mellitus Social History (Updated 10/22/22 @ 07:54 by Vic Fuller RN) Smoking Status: Never smoker alcohol intake: former substance use type: denies use current occupational status: employed Travel in the last 8 weeks: None household members: other housing: house current occupation: 3M caffeine: Yes [facility] Anesthesia Checklist Patient Identification Patient Identification: Arm Band Structural Data Admitted From: Home Planned Operative Procedure/s: colonoscopy Consent for Planned Operative Procedure(s) Verified: Yes Verified Documents: Surgical Consent and History and Physical NPO Status Verified Time NPO: 00:00 Additional verifications Anesthesia Reactions: No Hx Blood Transfusions: No Blood Transfusion Reaction: No Airway Assessment C-Spine Mobility Assessed: Yes TMJ Mobility Assessed: Yes Dentition: Good Dentition Neurological Assessment Level of Consciousness: Awake and Alert Anesthesia Plan Anesthesia Risk discussed: Yes Anesthesia Plan: Verified ASA Class: III Anesthesia Type: MAC
[2022-10-22 09:00] VITALS: BP 121/67; PULSE 75; RESP 14; TEMP 36.6; O2SAT 92
--- NOTE | 2022-10-22 09:01 | HMH.SCOPE ---
Procedure: Date: 10/22/22 Patient Date of :: 1955 Procedure Performed:: Colonoscopy with polypectomy Indications:: History of multiple complex polyps removed (Dr. Jenkins) per colonoscopy in January 2018 Performing Provider:: Yon Grigsby MD Referring Provider:: . Sedation:: Monitored anesthesia care Procedure:: After informed consent was obtained the patient was taken to the endoscopy suite. Sedation ensued after the patient was transferred to the left lateral decubitus position. Pulse, blood pressure, and oxygen saturation were monitored throughout the procedure. Digital rectal exam revealed no significant abnormality. The colonoscope was placed in position. The entire colon was evaluated. The colonoscope was carefully removed and the patient was transferred to recovery in stable condition. Please see findings and specimens below for detail. Findings:: Bowel preparation moderate Fairly significant spasticity Scattered sigmoid diverticulosis Lobulated complex polyps (see specimens) Specimens:: Adjacent lobulated complex sessile polyps at 70 cm (cold snare) 7 mm lobulated complex sessile polyp at 60 cm (cold snare) Recommendations:: Timing of repeat colonoscopy is pending pathology but will likely be between 1-2 years with alternate/extended bowel preparation secondary to history of multiple complex polyps, moderate bowel preparation, and spasticity. Complications:: No immediate Estimated blood obtained (mL): 1
[2022-10-22 09:10] VITALS: BP 117/65; PULSE 71; RESP 16; O2SAT 95
[2022-10-22 09:20] VITALS: BP 133/59; PULSE 61; RESP 16; O2SAT 94
[2022-10-22 09:30] VITALS: BP 147/70; PULSE 60; RESP 17; TEMP 36.6; O2SAT 94
== END 2022-10-22 09:30 | disposition home or self-care (01) ==
PROVIDERS: PCP Family Medicine; Visit Provider Surgery
PROC: 0DJD8ZZ Inspection of Lower Intestinal Tract, Via Natural or Artificial Opening Endoscopic (ICD-10-PCS; CPT 45385; principal; 2022-10-22 08:30)
DX: Z12.11 Encounter for screening for malignant neoplasm of colon (principal); Z86.010 Personal history of colon polyps; D12.6 Benign neoplasm of colon, unspecified; K57.30 Diverticulosis of large intestine without perforation or abscess without bleeding; E11.9 Type 2 diabetes mellitus without complications; Z79.899 Other long term (current) drug therapy
CPT/HCPCS: 45385; 82962; 88305